=== PATIENT | male | born 1935 | race Hispanic/Latino ===

== ENCOUNTER 2017-12-20 16:11 | Emergency (ER) | payer MEDICARE, BC ==
[2017-12-20 16:11] VITALS: BMI 27.3
--- NOTE | 2017-12-20 18:01 | ED PDOC ---
Arrival/HPI - General Chief Complaint: Lower Extremity Problem/Injury Time Seen by Provider: 12/20/17 16:30 Historian: Patient - History of Present Illness Narrative History of Present Illness (Text): 12/20/17 17:52 82yo male with pmhx of hypertension present to ED with the by the bedside with the complaint of left lower leg pain and swelling x 5days. States he was seen today by his PMD for routine office visit and when he told him about his leg, he referred him to the ED for US. Reports history of similar symptom on his right leg in the past, that resolved without medication. Patient denied fever, chills, chest pain, SOB, diaphoresis, nausea, vomiting, any other complaint. Past Medical History - Provider Review Nursing Documentation Reviewed: Yes - Infectious Disease Hx of Infectious Diseases: None - Cardiac Hx Cardiac Disorders: Yes Hx Hypertension: Yes - Pulmonary Hx Respiratory Disorders: No - Neurological Hx Neurological Disorder: No - HEENT Hx HEENT Disorder: No - Renal Hx Renal Disorder: No - Endocrine/Metabolic Hx Endocrine Disorders: No - Hematological/Oncological Hx Blood Disorders: No - Integumentary Hx Dermatological Disorder: No - Musculoskeletal/Rheumatological Hx Musculoskeletal Disorders: No - Gastrointestinal Hx Gastrointestinal Disorders: No - Genitourinary/Gynecological Hx Genitourinary Disorders: No - Psychiatric Hx Psychophysiologic Disorder: No Hx Substance Use: No - Surgical History Hx Open Heart Surgery: Yes Other/Comment: hernia repair Family/Social History - Physician Review Nursing Documentation Reviewed: Yes Family/Social History: Unknown Family HX Smoking Status: Former Smoker Hx Alcohol Use: No Hx Substance Use: No Allergies/Home Meds Allergies/Adverse Reactions: Allergies No Known Allergies Allergy (Verified 12/20/17 16:32) Home Medications: Home Meds Medication Instructions Recorded Confirmed Doxazosin [Cardura] 2 mg PO HS 12/26/14 11/25/16 Furosemide [Lasix] 40 mg PO DAILY 12/26/14 11/25/16 Latanoprost 0.005% Opht [Xalatan 1 drop BOTHEYES DAILY 12/26/14 11/25/16 Opht] Amlodipine Besylate [Norvasc] 10 mg PO DAILY 09/23/15 11/25/16 Aspirin [Ecotrin] 81 mg PO DAILY 09/23/15 11/25/16 Ezetimibe/Simvastatin [Vytorin 1 tab PO DAILY 09/23/15 11/25/16 10-20 mg Tablet] Finasteride 5 mg PO DAILY 09/23/15 11/25/16 Irbesartan 300 mg PO DAILY 09/23/15 11/25/16 Metoprolol Tartrate 25 mg PO DAILY 09/23/15 11/25/16 Potassium Chloride 10 meq PO DAILY 09/23/15 11/25/16 Review of Systems - Physician Review All systems were reviewed & negative as marked: Yes - Review of Systems Constitutional: Normal Eyes: Normal ENT: Normal Respiratory: Normal Cardiovascular: Normal Gastrointestinal: Normal Genitourinary Male: Normal Musculoskeletal: Arthralgias (Left lower leg) Skin: Normal Neurological: Normal Endocrine: Normal Hemo/Lymphatic: Normal Psychiatric: Normal Physical Exam Vital Signs Reviewed: Yes Vital Signs Temp Pulse Resp BP Pulse Ox 12/20/17 16:28 98.1 F 76 19 119/79 98 Temperature: Afebrile Blood Pressure: Normal Pulse: Regular Respiratory Rate: Normal Appearance: Positive for: Well-Appearing, Non-Toxic, Comfortable Pain Distress: None Mental Status: Positive for: Alert and Oriented X 3 - Systems Exam Head: Present: Atraumatic, Normocephalic Pupils: Present: PERRL Extroacular Muscles: Present: EOMI Conjunctiva: Present: Normal Mouth: Present: Moist Mucous Membranes Neck: Present: Normal Range of Motion Respiratory/Chest: Present: Clear to Auscultation, Good Air Exchange. No: Respiratory Distress, Accessory Muscle Use Cardiovascular: Present: Regular Rate and Rhythm, Normal S1, S2. No: Murmurs Abdomen: No: Tenderness, Distention, Peritoneal Signs Back: Present: Normal Inspection Upper Extremity: Present: Normal Inspection. No: Cyanosis, Edema Lower Extremity: Present: Edema (3+ LLE), NORMAL PULSES, Normal ROM. No: CALF TENDERNESS, Tenderness, Temperature Abnormalties Neurological: Present: GCS=15, CN II-XII Intact, Speech Normal Skin: Present: Warm, Dry, Normal Color. No: Rashes Psychiatric: Present: Alert, Oriented x 3, Normal Insight, Normal Concentration Medical Decision Making ED Course and Treatment: 12/20/17 18:26 82yo male who was referred to ED for left lower leg doppler. Pt have no cm sign and no calf tenderness. Left lower leg edema was noted. Doppler US - Preliminary result was negative. Per US tech patient have a popliteal cyst on the left and a cooley's cyst on the right. US result was DW Dr. Victor who referred pt and he request that pt be DC home and advised to fill the Augmentin rx he gave him and reduce his Amlodopine intake to 5mg daily. All result and plan was DW both pt, the and the son over the phone and they all expressed understanding - RAD Interpretation Radiology Orders: 12/20/17 16:31 DUPLEX LOWER EXTRM VEIN BILAT [US] Stat Disposition/Present on Arrival - Present on Arrival Any Indicators Present on Arrival: No History of DVT/PE: No History of Uncontrolled Diabetes: No Urinary Catheter: No History of Decub. Ulcer: No History Surgical Site Infection Following: None - Disposition Have Diagnosis and Disposition been Completed?: Yes Diagnosis: Leg edema Disposition: HOME/ ROUTINE Disposition Time: 18:20 Patient Plan: Discharge Patient Problems: Current Active Problems Problem Status Onset Leg edema Acute Condition: STABLE Discharge Instructions (ExitCare): Dependent Edema (DC) Additional Instructions: Reduce your Amlodipine dose to 5mg Take your antibiotics as directed Keep leg elevated Follow up with your Doctor Return to ED for any new or worsening symptoms Referrals: Wilmer Victor MD [Family Provider] - Follow up with primary Forms: [facility] (Frisian)
--- NOTE | 2017-12-20 18:52 | US ---
HISTORY: Leg pain and swelling. Evaluate for DVT PHYSICIAN(S): Andrey Kerr MD. TECHNIQUE: Duplex sonography and color-flow Doppler with graded compression were used to evaluate the deep venous systems of both lower extremities. FINDINGS: The visualized deep venous systems of both lower extremities are sonographically normal and compressible. Normal wave forms and augmentation are seen. There is no sonographic evidence for deep venous thrombosis in the visualized segments of both lower extremities. There is a 3.2 x 3.8 cm oblong fluid collection in the right popliteal fossa, consistent with a Delacruz cyst IMPRESSION: No sonographic evidence for deep venous thrombosis in the visualized segments of both lower extremities.
[2017-12-20 19:12] VITALS: BP 124/72; PULSE 62; RESP 18; TEMP 98.6; O2SAT 99
== END 2017-12-20 18:30 | disposition home or self-care (01) ==
LOC: ED 16:11
DX: R60.0 Localized edema (principal); I10 Essential (primary) hypertension; Z87.891 Personal history of nicotine dependence

== ENCOUNTER 2018-04-15 15:46 | Observation (INO) | payer MEDICARE, BC ==
[2018-04-15 16:02] VITALS: BMI 28.3
--- NOTE | 2018-04-15 16:34 | ED PDOC ---
Arrival/HPI - General Chief Complaint: Lower Extremity Problem/Injury Time Seen by Provider: 04/15/18 16:10 Historian: Patient, Spouse, Family (son) - History of Present Illness Narrative History of Present Illness (Text): 04/15/18 16:30 82 y/o male with PMH of CAD (s/p CABG 2012), AAA, CHF presents to the ED c/o bilateral leg pain and swelling x 1 day. Associated intermittent SOB. Patient states pain is greatest in the left knee. Pt saw his PMD Dr. Victor this afternoon, who recommended that patient come to ED for evaluation. Pt was seen here for similar symptoms 12/2017 and was discharged home after a negative venous duplex and was ultimately treated for gout with some relief. Pt reportedly has a cysts behind both knees. Has not taken any medication for pain. Pt states he receives yearly echocardiograms and stress tests. Pt stays active by using the treadmill daily but was unable to yesterday secondary to pain. D enies fevers, chills, abdominal pain, back pain, chest pain, palpitations, N/V/D, weakness, numbness, paresthesias, or any other associated symptoms. PMD: Dr. Victor Senior [employer]: Dr. Arora Past Medical History - Provider Review Nursing Documentation Reviewed: Yes - Infectious Disease Hx of Infectious Diseases: None - Cardiac Hx Cardiac Disorders: Yes Hx Hypertension: Yes - Pulmonary Hx Respiratory Disorders: No - Neurological Hx Neurological Disorder: No - HEENT Hx HEENT Disorder: No - Renal Hx Renal Disorder: No - Endocrine/Metabolic Hx Endocrine Disorders: No - Hematological/Oncological Hx Blood Disorders: No - Integumentary Hx Dermatological Disorder: No - Musculoskeletal/Rheumatological Hx Musculoskeletal Disorders: No - Gastrointestinal Hx Gastrointestinal Disorders: No - Genitourinary/Gynecological Hx Genitourinary Disorders: No - Psychiatric Hx Psychophysiologic Disorder: No Hx Substance Use: No - Surgical History Hx Open Heart Surgery: Yes Other/Comment: hernia repair - Anesthesia Hx Anesthesia Reactions: No Hx Malignant Hyperthermia: No Family/Social History - Physician Review Nursing Documentation Reviewed: Yes Family/Social History: No Known Family HX Smoking Status: Former Smoker Hx Alcohol Use: No Hx Substance Use: No Allergies/Home Meds Allergies/Adverse Reactions: Allergies No Known Allergies Allergy (Verified 12/20/17 16:32) Home Medications: Home Meds Medication Instructions Recorded Confirmed Doxazosin [Cardura] 2 mg PO HS 12/26/14 04/16/18 Furosemide [Lasix] 40 mg PO DAILY 12/26/14 04/16/18 Latanoprost 0.005% Opht [Xalatan 1 drop OU DAILY 12/26/14 04/16/18 Opht] Amlodipine Besylate [Norvasc] 10 mg PO DAILY 09/23/15 04/16/18 Aspirin [Ecotrin] 81 mg PO DAILY 09/23/15 04/16/18 Ezetimibe/Simvastatin [Vytorin 1 tab PO DAILY 09/23/15 04/16/18 10-20 mg Tablet] Finasteride 5 mg PO DAILY 09/23/15 04/16/18 Irbesartan 300 mg PO DAILY 09/23/15 04/16/18 Metoprolol Tartrate 25 mg PO BID 09/23/15 04/16/18 Potassium Chloride 10 meq PO DAILY 09/23/15 04/16/18 Cholecalciferol [Vitamin D 1000 IU] 1 tab PO DAILY 04/16/18 04/16/18 Ticagrelor [Brilinta] 90 mg PO BID 04/16/18 04/16/18 Review of Systems - Physician Review All systems were reviewed & negative as marked: Yes - Review of Systems Constitutional: Fatigue Eyes: Normal. absent: Vision Changes ENT: Normal. absent: Hearing Changes, Sinus Congestion Respiratory: Normal. absent: SOB, Cough Cardiovascular: Normal. absent: Chest Pain, Palpitations, Syncope Gastrointestinal: Normal. absent: Abdominal Pain, Stool Changes, Nausea, Vo miting, Appetite Changes Genitourinary Male: Normal. absent: Dysuria, Frequency Musculoskeletal: Arthralgias (bilateral leg pain), Joint Swelling (left knee). absent: Back Pain Skin: Normal. absent: Rash Neurological: Normal. absent: Headache, Dizziness Endocrine: Normal Hemo/Lymphatic: Normal Psychiatric: Normal Physical Exam Vital Signs Reviewed: Yes Vital Signs Temp Pulse Resp BP Pulse Ox 04/15/18 15:47 99.1 F 95 H 20 138/75 97 Temperature: Afebrile Blood Pressure: Normal Pulse: Regular Respiratory Rate: Normal Appearance: Positive for: Well-Appearing, Non-Toxic, Comfortable Pain Distress: None Mental Status: Positive for: Alert and Oriented X 3 - Systems Exam Head: Present: Atraumatic, Normocephalic Pupils: Present: PERRL Extroacular Muscles: Present: EOMI Conjunctiva: Present: Normal Mouth: Present: Moist Mucous Membranes Neck: Present: Normal Range of Motion Respiratory/Chest: Present: Good Air Exchange, Decreased Breath Sounds (bilaterally), Rales (bilateral bases). No: Respiratory Distress, Accessory Muscle Use, Wheezes, Rhonchi Cardiovascular: Present: Regular Rate and Rhythm, Normal S1, S2, Peripheal Pulses Present (2/2 pedal pulses) Abdomen: Present: Normal Bowel Sounds. No: Tenderness, Distention, Peritoneal Signs, Rebound, Guarding Back: Present: Normal Inspection. No: CVA Tenderness, Midline Tenderness, Paraspinal Tenderness Upper Extremity: Present: Normal Inspection, Normal ROM, NORMAL PULSES, Neurovascularly Intact, Capillary Refill < 2s. No: Cyanosis, Edema, Swelling, Temperature Abnormalties Lower Extremity: Present: Normal Inspection, NORMAL PULSES, Normal ROM, Tenderness (left anterior knee lateral to patella), Swelling (bilateral pitting edema to feet; left knee anterior swelling without redness or wamrth), Neurovascularly Intact, Capillary Refill < 2 s. No: Edema, CALF TENDERNESS, Cyanosis, Ralph's Sign, Erythema, Deformity, Temperature Abnormalties Neurological: Present: GCS=15, CN II-XII Intact, Speech Normal, Motor Func Grossly Intact, Normal Sensory Function, Gait Normal Skin: Present: Warm, Dry, Normal Color. No: Rashes, Hot Psychiatric: Present: Alert, Oriented x 3, Normal Insight, Normal Concentration, Normal Affect, Normal Mood Medical Decision Making ED Course and Treatment: Initial Plan: * CBC, CMP * Troponin * BNP * UA * EKG * CXR * Lasix Labwork reviewed, reveals elevated BNP and mild anemia; otherwise unremarkable Venous duplex prelim read at negative for DVT bilaterally CXR reveals pulmonary congestion EKG reveals NSR with PVC, RBBB, Left anterior fascicular block; no comparison; troponin negative Patient reports decreased pain with tylenol Decision to admit for observation discussed with patient and family, who verbalize understanding and were given the opportunity to ask questions. 19:[address] Holley who accepted patient for telemetry observation with diagnosis of CHF exacerbation. Pt resting comfortably in stretcher with vital signs stable at this time. campus president notified. - Lab Interpretations Lab Results: 04/15/18 16:58 04/15/18 16:58 Lab Results 04/15/18 16:58: PT 12.9 H, INR 1.16, APTT 32.8 04/15/18 16:58: Sodium 135, Potassium 4.6, Chloride 100, Carbon Dioxide 26, Anion Gap 14, BUN 27 H, Creatinine 1.1, Est GFR ( Amer) > 60, Est GFR (Non-Af Amer) > 60, Random Glucose 124 H, Calcium 8.9, Total Bilirubin 0.7, AST 22, ALT < 6 L, Alkaline Phosphatase 69, Troponin I < 0.01, NT-Pro-B Natriuret Pep 944 H, Total Protein 7.8, Albumin 4.1, Globulin 3.7, Albumin/Globulin Ratio 1.1 04/15/18 16:58: Urine Color Yellow, Urine Appearance Clear, Urine pH 6.0, Ur Specific Clifford 1.015, Urine Protein Trace H, Urine Glucose (UA) Negative, Urine Ketones Negative, Urine Blood Negative, Urine Nitrate Negative, Urine Bilirubin Negative, Urine Urobilinogen 0.2, Ur Leukocyte Esterase Trace H, Urine RBC 0 - 2, Urine WBC 1 - 3, Ur Epithelial Cells 0 - 2 04/15/18 16:58: WBC 10.2, RBC 3.98, Hgb 11.2 L, Hct 34.2 L, MCV 85.9, MCH 28.1, MCHC 32.7, RDW 13.4, Plt Count 179, MPV 11.5 H, Neut % (Auto) 79.0 H, Lymph % (Auto) 11.9 L, Hendricks % (Auto) 8.5 H, Eos % (Auto) 0.4 L, Baso % (Auto) 0.2, Lymph # (Auto) 1.2, Hendricks # (Auto) 0.9 H, Eos # (Auto) 0.0, Baso # (Auto) 0.02, Absolute Neuts (auto) 8.04 H I have reviewed the lab results: Yes - RAD Interpretation Narrative RAD Interpretations (Text): CXR: Dictator : Marquis Ewing MD Report Date : 04/15/2018 18:25:16 FINDINGS: FINDINGS: LUNGS: Poor inspiration with low lung volumes, crowded bronchovascular markings and mild bibasilar atelectasis. Central pulmonary vasculature is also slightly i ncreased possibly due to poor inspiration however the possibility of mild chronic compensated pulmonary venous congestion not excluded. PLEURA: Sternotomy wires again noted. Heart is enlarged. No significant pleural effusion identified, no pneumothorax apparent. CARDIOVASCULAR: Sternotomy wires again noted heart is enlarged. Mild aortic atherosclerotic calcification present. OSSEOUS STRUCTURES: Deformity of the distal right clavicle possibly representing old healed fracture deformity. VISUALIZED UPPER ABDOMEN: Normal. OTHER FINDINGS: None. IMPRESSION: Poor inspiration with low lung volumes, crowded bronchovascular markings and mild bibasilar atelectasis. Central pulmonary vasculature is also slightly increased possibly due to poor inspiration however the possibility of mild chronic compensated pulmonary venous congestion not excluded. Knee Bilateral: Dictator : Marquis Ewing MD Report Date : 04/15/2018 18:20:04 FINDINGS: BONES: No evidence of acute displaced fracture nor dislocation. The osseous structures intact. Not much JOINTS: Right Knee: Mild moderate degenerative osteoarthritis. There is mild medial joint space narrowing. Spurring of the tibial spines. Marginal osteophyte formation seen arising from the lateral tibial plateau and lateral femoral condyle. Posterior patellar osteophytes are present.. Left knee: Mild degenerative osteoarthritis. There is minor medial joint space narrowing. Minimal spurring of the tibial spines. Small marginal osteophyte formation arising from the lateral tibial plateau and lateral femoral condyle. Tiny posterior patella osteophyte formation. SOFT TISSUES: Right Knee: Vascular calcifications are present Left Knee: Vascular calcifications are present. Additionally, there are multiple small vascular clips seen within the medial soft tissues of the distal thigh and proximal calf consistent with prior saphenous vein harvest however clinical correlation recommended. L. JOINT EFFUSION: Right Knee: Small suprapatellar joint effusion.. Left Knee: [id number] suprapatellar joint effusion. OTHER FINDINGS: None. IMPRESSION: No acute fractures. 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 Moderate-large size suprapatellar joint effusion 04/16/18 03:59 Radiology Orders: 04/15/18 16:20 CHEST PORTABLE [RAD] Stat DUPLEX LOWER EXTRM VEIN BILAT [US] Stat 04/15/18 16:22 KNEES BILATERAL [RAD] Stat Crowning Hammer Operator: Radiologist - EKG Interpretation EKG Interpretation (Text): Rate 96, NSR with PVC, RBBB, Left Anterior Fascicular Block, No STEMI, nonspecific ST/T wave changes Interpreted by ED Physician: Yes (Dr. Alvarez) Type: 12 lead EKG Comparison: No previous EKG avail. Disposition/Present on Arrival - Present on Arrival Any Indicators Present on Arrival: No History of DVT/PE: No History of Uncontrolled Diabetes: No Urinary Catheter: No History of Decub. Ulcer: No History Surgical Site Infection Following: None - Disposition Have Diagnosis and Disposition been Completed?: Yes Diagnosis: CHF exacerbation Disposition: HOSPITALIZED Disposition Time: 19:20 Patient Plan: Admission Condition: GOOD
[2018-04-15 17:05] LABS: BASO # 0.02 K/mm3 (0.0-2.0); BASO % 0.2 % (0.0-3.0); EOS % 0.4 % (1.5-5.0); HEMOGLOBIN 11.2 g/dL (14.0-18.0); LYMPH # 1.2 (1.2-3.4); LYMPH % 11.9 % (22.0-35.0); MEAN CELL VOLUME 85.9 fl (80.0-105.0); MEAN CORPUSCULAR HEMOGLOBIN 28.1 pg (25.0-35.0); MEAN CORPUSCULAR HGB CONC 32.7 g/dl (31.0-37.0); MEAN PLATELET VOLUME 11.5 fl (7.0-11.0); MONO # 0.9 (0.1-0.6); MONO % 8.5 % (1.0-6.0); RBC 3.98 10^6/uL (3.5-6.1); RED CELL DISTRIBUTION WIDTH 13.4 % (11.5-14.5); URINE BILIRUBIN NEGATIVE (NEGATIVE); URINE BLOOD NEGATIVE (NEGATIVE); URINE GLUCOSE (UA) NEGATIVE (NEGATIVE); URINE LEUKOCYTE ESTERASE TRACE Leu/uL (NEGATIVE); URINE PROTEIN TRACE mg/dL (<30 mg/dL); URINE UROBILINOGEN 0.2 E.U./dL (<1 E.U./dL); WHITE BLOOD COUNT 10.2 10^3/uL (4.5-11.0)
[2018-04-15 17:06] LABS: URINE APPEARANCE CLEAR (CLEAR); URINE COLOR YELLOW (YELLOW)
[2018-04-15 17:16] LABS: INR 1.16; PARTIAL THROMBOPLASTIN TIME 32.8 Seconds (26.9-38.3); PROTHROMBIN TIME 12.9 SECONDS (9.4-12.5)
[2018-04-15 17:24] LABS: ALB/GLOB RATIO 1.1 (1.1-1.8); ALBUMIN 4.1 g/dL (3.0-4.8); ALT/SGPT < 6 U/L (7-56); AST/SGOT 22 U/L (17-59); BLOOD UREA NITROGEN 27 mg/dL (7-21); CALCIUM 8.9 mg/dL (8.4-10.5); GFR NON-AFRICAN AMERICAN > 60
[2018-04-15 17:29] LABS: B-TYPE NATRIURETIC PEPTIDE 944 pg/mL (0-450); TROPONIN I < 0.01 ng/mL; URINE RBC 0 - 2 /hpf (0-2)
[2018-04-15 17:30] LABS: URINE EPITHELIAL CELLS 0 - 2 /hpf (0-5)
--- NOTE | 2018-04-15 18:23 | RAD ---
Date of service: 04/15/2018 PROCEDURE: Bilateral Knee Radiographs. HISTORY: Knee pain swelling L>R COMPARISON: None. FINDINGS: BONES: No evidence of acute displaced fracture nor dislocation. The osseous structures intact. Not much JOINTS: Right Knee: Mild moderate degenerative osteoarthritis. There is mild medial joint space narrowing. Spurring of the tibial spines. Marginal osteophyte formation seen arising from the lateral tibial plateau and lateral femoral condyle. Posterior patellar osteophytes are present.. Left knee: Mild degenerative osteoarthritis. There is minor medial joint space narrowing. Minimal spurring of the tibial spines. Small marginal osteophyte formation arising from the lateral tibial plateau and lateral femoral condyle. Tiny posterior patella osteophyte formation. SOFT TISSUES: Right Knee: Vascular calcifications are present Left Knee: Vascular calcifications are present. Additionally, there are multiple small vascular clips seen within the medial soft tissues of the distal thigh and proximal calf consistent with prior saphenous vein harvest however clinical correlation recommended. L. JOINT EFFUSION: Right Knee: Small suprapatellar joint effusion.. Left Knee: [id number]-[id number]-ipbvy suprapatellar joint effusion. OTHER FINDINGS: None. IMPRESSION: No acute fractures. 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 Moderate-large size suprapatellar joint effusion
--- NOTE | 2018-04-15 18:28 | RAD ---
Date of service: 04/15/2018 HISTORY: SOB COMPARISON: No prior study available for comparison FINDINGS: LUNGS: Poor inspiration with low lung volumes, crowded bronchovascular markings and mild bibasilar atelectasis. Central pulmonary vasculature is also slightly increased possibly due to poor inspiration however the possibility of mild chronic compensated pulmonary venous congestion not excluded. PLEURA: Sternotomy wires again noted. Heart is enlarged. No significant pleural effusion identified, no pneumothorax apparent. CARDIOVASCULAR: Sternotomy wires again noted heart is enlarged. Mild aortic atherosclerotic calcification present. OSSEOUS STRUCTURES: Deformity of the distal right clavicle possibly representing old healed fracture deformity. VISUALIZED UPPER ABDOMEN: Normal. OTHER FINDINGS: None. IMPRESSION: Poor inspiration with low lung volumes, crowded bronchovascular markings and mild bibasilar atelectasis. Central pulmonary vasculature is also slightly increased possibly due to poor inspiration however the possibility of mild chronic compensated pulmonary venous congestion not excluded.
--- NOTE | 2018-04-15 20:25 | CP.PCM.HP ---
<DarianFranciscoNewton - Last Filed: 04/15/18 20:22> History of Present Illness - History of Present Illness History of Present Illness: Aman Farmer, PGY-1 Medicine H&P Note for Dr. Holley: CC: b/l LE swelling worse on L than R Pt is a 82 yo M with pmhx of 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 Pt states that he had also been having L sided knee pain which he noticed worsen yesterday. The pt is typically active and walks on a treadmill for 20mins 3x/day every day of the week. He states that he just woke up and noticed the swelling and then knee pain as well. He denies fevers, chills, headaches, chest pain, palpitations, SOB, dyspnea on exertion, orthopnea, abd pain, n/v, c/d, dysuria or hematuria. He does admit to b/l LE swelling and states that his L knee is also swollen. He states that he has been compliant with his medications but has been eating a diet that is a little higher in salt. Pmhx: CAD s/p CABG '13, HTN, HLD, BPH, CHF Pshx: CABG Meds: Lopressor 25qd, Irbesartan 300mgqd, finasteride 5qd, cardura 2 HS, ASA 81qd, norvasc 10 po qd, Lasix 40po qd All: NKDA Soc: Denies tobacco use, denies recent etoh or illicit drug use Fam: Non-contributory PMD: Dedousis Cardio: Ulysses Pharm: Lilian Present on Admission - Present on Admission Any Indicators Present on Admission: No Review of Systems - Review of Systems Review of Systems: 12 point ROS reviewed and negative except noted in HPI above. Past Patient History - Infectious Disease Hx of Infectious Diseases: None - Past Social History Smoking Status: Former Smoker - CARDIAC Hx Cardiac Disorders: Yes Hx Hypertension: Yes - PULMONARY Hx Respiratory Disorders: No - NEUROLOGICAL Hx Neurological Disorder: No - HEENT Hx HEENT Problems: No - RENAL Hx Chronic Kidney Disease: No - ENDOCRINE/METABOLIC Hx Endocrine Disorders: No - HEMATOLOGICAL/ONCOLOGICAL Hx Blood Disorders: No - INTEGUMENTARY Hx Dermatological Problems: No - MUSCULOSKELETAL/RHEUMATOLOGICAL Hx Musculoskeletal Disorders: No - GASTROINTESTINAL Hx Gastrointestinal Disorders: No - GENITOURINARY/GYNECOLOGICAL Hx Genitourinary Disorders: No - PSYCHIATRIC Hx Psychophysiologic Disorder: No Hx Substance Use: No - SURGICAL HISTORY Hx Open Heart Surgery: Yes Other/Comment: hernia repair - ANESTHESIA Hx Anesthesia Reactions: No Hx Malignant Hyperthermia: No Meds Allergies/Adverse Reactions: Allergies Allergy/AdvReac Type Severity Reaction Status Date / Time No Known Allergies Allergy Verified 12/20/17 16:32 Physical Exam - Constitutional Appears: Non-toxic, No Acute Distress - Head Exam Head Exam: ATRAUMATIC, NORMAL INSPECTION, NORMOCEPHALIC - Eye Exam Eye Exam: EOMI, Normal appearance, PERRL - Respiratory Exam Respiratory Exam: Rales (noted in b/l lower lobes b/l), NORMAL BREATHING PATTERN. absent: Accessory Muscle Use, Rhonchi, Wheezes, Respiratory Distress, Stridor - Cardiovascular Exam Cardiovascular Exam: RRR, +S1, +S2. absent: Gallop, Rubs - GI/Abdominal Exam GI & Abdominal Exam: Normal Bowel Sounds, Soft. absent: Firm, Guarding, Hernia, Tenderness - Extremities Exam Extremities exam: Positive for: pedal edema (present on both extremities b/l, worse on L than R), tenderness (present at the L knee, L knee is swollen, but not warm or erythematous, ). Negative for: calf tenderness - Back Exam Back exam: NORMAL INSPECTION. absent: CVA tenderness (L), CVA tenderness (R) - Neurological Exam Neurological exam: Alert, Oriented x3 - Psychiatric Exam Psychiatric exam: Normal Affect, Normal Mood - Skin Skin Exam: Dry, Normal Color, Warm Results - Vital Signs Recent Vital Signs: Last Vital Signs Temp 99.1 F 04/15/18 15:47 Pulse 73 04/15/18 19:43 Resp 18 04/15/18 19:43 BP 109/43 L 04/15/18 19:43 Pulse Ox 100 04/15/18 19:43 - Labs Result Diagrams: 04/15/18 16:58 04/15/18 16:58 Labs: Laboratory Results - last 24 hr 04/15/18 04/15/18 04/15/18 16:58 16:58 16:58 WBC 10.2 RBC 3.98 Hgb 11.2 L Hct 34.2 L MCV 85.9 MCH 28.1 MCHC 32.7 RDW 13.4 Plt Count 179 MPV 11.5 H Neut % (Auto) 79.0 H Lymph % (Auto) 11.9 L [place] % (Auto) 8.5 H Eos % (Auto) 0.4 L Baso % (Auto) 0.2 Lymph # (Auto) 1.2 [place] # (Auto) 0.9 H Eos # (Auto) 0.0 Baso # (Auto) 0.02 Absolute Neuts (auto) 8.04 H PT INR APTT Sodium 135 Potassium 4.6 Chloride 100 Carbon Dioxide 26 Anion Gap 14 BUN 27 H Creatinine 1.1 Est GFR ( Amer) > 60 Est GFR (Non-Af Amer) > 60 Random Glucose 124 H Calcium 8.9 Total Bilirubin 0.7 AST 22 ALT < 6 L Alkaline Phosphatase 69 Troponin I < 0.01 NT-Pro-B Natriuret Pep 944 H Total Protein 7.8 Albumin 4.1 Globulin 3.7 Albumin/Globulin Ratio 1.1 Urine Color Yellow Urine Appearance Clear Urine pH 6.0 Ur Specific [place] 1.015 Urine Protein Trace H Urine Glucose (UA) Negative Urine Ketones Negative Urine Blood Negative Urine Nitrate Negative Urine Bilirubin Negative Urine Urobilinogen 0.2 Ur Leukocyte Esterase Trace H Urine RBC 0 - 2 Urine WBC 1 - 3 Ur Epithelial Cells 0 - 2 Influenza Typ A,B (EIA) 04/15/18 04/15/18 16:58 19:25 WBC RBC Hgb Hct MCV MCH MCHC RDW Plt Count MPV Neut % (Auto) Lymph % (Auto) [place] % (Auto) Eos % (Auto) Baso % (Auto) Lymph # (Auto) [place] # (Auto) Eos # (Auto) Baso # (Auto) Absolute Neuts (auto) PT 12.9 H INR 1.16 APTT 32.8 Sodium Potassium Chloride Carbon Dioxide Anion Gap BUN Creatinine Est GFR ( Amer) Est GFR (Non-Af Amer) Random Glucose Calcium Total Bilirubin AST ALT Alkaline Phosphatase Troponin I NT-Pro-B Natriuret Pep Total Protein Albumin Globulin Albumin/Globulin Ratio Urine Color Urine Appearance Urine pH Ur Specific [place] Urine Protein Urine Glucose (UA) Urine Ketones Urine Blood Urine Nitrate Urine Bilirubin Urine Urobilinogen Ur Leukocyte Esterase Urine RBC Urine WBC Ur Epithelial Cells Influenza Typ A,B (EIA) Negative for flu a/b Assessment & Plan - Assessment and Plan (Free Text) Assessment: Pt is a 82 yo M with pmhx of 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 Plan: 1) B/l LE swelling 2/2 CHF exacerbation but r/o DVT: - Pt does not have signs of JVD, but does have some edema noted in LE b/l as well as mild crackles at lung bases - BNP elevated in the 944 - CXR: pulm vasc congestion - read by me - f/u official LE doppler read - Lasix 40 IVP given in ED - Cont lasix 40 iv qd - Echo in AM - Cardio consulted - Dr. Arora - Strict I/Os - Daily weights - Low Na diet - HOB 30 2) L Knee pain: - L knee XR showed mild effusion f/u with official read - Naproxen 550 BID PRN 3) Hx of HTN - Cont home norvasc, lopressor and irbesartan 4) Hx of HLD: - Cont home Vytorin 5) Hx of BPH: - Cont home cardura, and proscar 6) Hx of CAD s/p CABG '13: - Cont home ASA, Lopressor PPx: GI: Pepcid DVT: Lovenox Case seen and discussed with Dr. Kishan Farmer, PGY-1 <Kesha Holley - Last Filed: 04/16/18 05:41> Results - Vital Signs Recent Vital Signs: Last Vital Signs Temp 99.9 F H 04/16/18 05:29 Pulse 98 H 04/16/18 05:29 Resp 18 04/16/18 05:29 BP 124/75 04/16/18 05:29 Pulse Ox 94 L 04/16/18 05:29 - Labs Result Diagrams: 04/15/18 16:58 04/15/18 16:58 Labs: Laboratory Results - last 24 hr 04/15/18 04/15/18 04/15/18 16:58 16:58 16:58 WBC 10.2 RBC 3.98 Hgb 11.2 L Hct 34.2 L MCV 85.9 MCH 28.1 MCHC 32.7 RDW 13.4 Plt Count 179 MPV 11.5 H Neut % (Auto) 79.0 H Lymph % (Auto) 11.9 L [place] % (Auto) 8.5 H Eos % (Auto) 0.4 L Baso % (Auto) 0.2 Lymph # (Auto) 1.2 [place] # (Auto) 0.9 H Eos # (Auto) 0.0 Baso # (Auto) 0.02 Absolute Neuts (auto) 8.04 H PT INR APTT Sodium 135 Potassium 4.6 Chloride 100 Carbon Dioxide 26 Anion Gap 14 BUN 27 H Creatinine 1.1 Est GFR ( Amer) > 60 Est GFR (Non-Af Amer) > 60 Random Glucose 124 H Calcium 8.9 Total Bilirubin 0.7 AST 22 ALT < 6 L Alkaline Phosphatase 69 Troponin I < 0.01 NT-Pro-B Natriuret Pep 944 H Total Protein 7.8 Albumin 4.1 Globulin 3.7 Albumin/Globulin Ratio 1.1 Urine Color Yellow Urine Appearance Clear Urine pH 6.0 Ur Specific [place] 1.015 Urine Protein Trace H Urine Glucose (UA) Negative Urine Ketones Negative Urine Blood Negative Urine Nitrate Negative Urine Bilirubin Negative Urine Urobilinogen 0.2 Ur Leukocyte Esterase Trace H Urine RBC 0 - 2 Urine WBC 1 - 3 Ur Epithelial Cells 0 - 2 Influenza Typ A,B (EIA) 04/15/18 04/15/18 04/16/18 16:58 19:25 02:50 WBC RBC Hgb Hct MCV MCH MCHC RDW Plt Count MPV Neut % (Auto) Lymph % (Auto) [place] % (Auto) Eos % (Auto) Baso % (Auto) Lymph # (Auto) [place] # (Auto) Eos # (Auto) Baso # (Auto) Absolute Neuts (auto) PT 12.9 H INR 1.16 APTT 32.8 Sodium Potassium Chloride Carbon Dioxide Anion Gap BUN Creatinine Est GFR ( Amer) Est GFR (Non-Af Amer) Random Glucose Calcium Total Bilirubin AST ALT Alkaline Phosphatase Troponin I < 0.01 NT-Pro-B Natriuret Pep Total Protein Albumin Globulin Albumin/Globulin Ratio Urine Color Urine Appearance Urine pH Ur Specific [place] Urine Protein Urine Glucose (UA) Urine Ketones Urine Blood Urine Nitrate Urine Bilirubin Urine Urobilinogen Ur Leukocyte Esterase Urine RBC Urine WBC Ur Epithelial Cells Influenza Typ A,B (EIA) Negative for flu a/b Attending/Attestation - Attestation I have personally seen and examined this patient.: Yes I have fully participated in the care of the patient.: Yes I have reviewed all pertinent clinical information: Yes
[2018-04-15] MEDS ORDERED: Naproxen 550 mg Tab PO PRN (20:53)
--- NOTE | 2018-04-15 22:54 | CARD ---
APPROVED REPORT Date of service: 04/15/2018 EKG Measurement Heart [id number] <Conclusion> Sinus rhythm with frequent premature ventricular complexes Right bundle branch block Left anterior fascicular block Bifascicular block Diffuse NDSTT abnormalities Abnormal ECG
--- NOTE | 2018-04-16 07:54 | CP.PCM.CON ---
History of Present Illness - History of Present Illness History of Present Illness: Awake, no distress, denies chest pain or shortness of breath Reason for consultation: Cardiac evaluation of shortness of breath and leg swelling Brief history of present illness: An 82 year old male who came in to the ER due to bilateral leg swelling and pain associated with shortness of breath. He was seen by his PMD prior to admission and recommended to come to [facility]. History of abdominal aortic aneurysm, coronary artery disease post CABG in 2013, lower extremity edema, popliteal cyst in the right knee and cooley;s cyst in the left knee.hypertension, hyperlipidemia,BPH, congestive heart failure, hernia repair, former smoker. Seen and examined by me and Dr. Arora Review of Systems - Review of Systems All systems: reviewed and no additional remarkable complaints except Review of Systems: as per HPI Past Patient History - Infectious Disease Hx of Infectious Diseases: None - Past Social History Smoking Status: Former Smoker - CARDIAC Hx Cardiac Disorders: Yes Hx Hypertension: Yes - PULMONARY Hx Respiratory Disorders: No - NEUROLOGICAL Hx Neurological Disorder: No - HEENT Hx HEENT Problems: No - RENAL Hx Chronic Kidney Disease: No - ENDOCRINE/METABOLIC Hx Endocrine Disorders: No - HEMATOLOGICAL/ONCOLOGICAL Hx Blood Disorders: No - INTEGUMENTARY Hx Dermatological Problems: No - MUSCULOSKELETAL/RHEUMATOLOGICAL Hx Musculoskeletal Disorders: No - GASTROINTESTINAL Hx Gastrointestinal Disorders: No - GENITOURINARY/GYNECOLOGICAL Hx Genitourinary Disorders: No - PSYCHIATRIC Hx Psychophysiologic Disorder: No Hx Substance Use: No - SURGICAL HISTORY Hx Open Heart Surgery: Yes Other/Comment: hernia repair - ANESTHESIA Hx Anesthesia Reactions: No Hx Malignant Hyperthermia: No Meds Allergies/Adverse Reactions: Allergies Allergy/AdvReac Type Severity Reaction Status Date / Time No Known Allergies Allergy Verified 12/20/17 16:32 - Medications Medications: Current Medications Amlodipine Besylate (Norvasc) 10 mg PO DAILY [facility] Aspirin (Ecotrin) 81 mg PO DAILY [facility] Atorvastatin Calcium (Lipitor) 10 mg PO DAILY [facility] Doxazosin Mesylate (Cardura) 2 mg PO HS [facility] Last Admin: 04/15/18 22:42 Dose: 2 mg Ezetimibe (Zetia) 10 mg PO DAILY [facility] Enoxaparin Sodium (Lovenox) 40 mg SC DAILY [facility]; Protocol Famotidine (Pepcid) 20 mg PO 1000,2200 [facility] Last Admin: 04/15/18 22:42 Dose: 20 mg Finasteride (Proscar) 5 mg PO DAILY [facility] Furosemide (Lasix) 40 mg IVP DAILY [facility] Latanoprost (Xalatan Opht) 0 ml OU DAILY [facility] Losartan Potassium (Cozaar) 100 mg PO DAILY [facility] Metoprolol Tartrate (Lopressor) 25 mg PO DAILY [facility] Naproxen (Anaprox Ds) 550 mg PO BID PRN PRN Reason: Pain, moderate (4-7) Physical Exam - Constitutional Appears: Non-toxic, No Acute Distress - Head Exam Head Exam: NORMAL INSPECTION, NORMOCEPHALIC - Eye Exam Eye Exam: Normal appearance Pupil Exam: NORMAL ACCOMODATION - ENT Exam ENT Exam: Mucous Membranes Moist - Respiratory Exam Respiratory Exam: Decreased Breath Sounds, NORMAL BREATHING PATTERN - Cardiovascular Exam Cardiovascular Exam: REGULAR RHYTHM, +S1, +S2 Additional comments: Telemetry NSR 80-90's - GI/Abdominal Exam GI & Abdominal Exam: Normal Bowel Sounds, Soft - Extremities Exam Extremities exam: Positive for: full ROM Additional comments: 1-2+ edema - Neurological Exam Neurological exam: Alert, Oriented x3 - Psychiatric Exam Psychiatric exam: Normal Affect, Normal Mood - Skin Skin Exam: Dry, Normal Color, Warm Results - Vital Signs Recent Vital Signs: Last Vital Signs Temp 99.0 F 04/16/18 07:00 Pulse 98 H 04/16/18 05:29 Resp 18 04/16/18 05:29 BP 124/75 04/16/18 05:29 Pulse Ox 94 L 04/16/18 05:29 - Labs Result Diagrams: 04/16/18 08:30 04/16/18 08:30 Labs: Laboratory Results - last 24 hr 04/15/18 04/15/18 04/15/18 16:58 16:58 16:58 WBC 10.2 RBC 3.98 Hgb 11.2 L Hct 34.2 L MCV 85.9 MCH 28.1 MCHC 32.7 RDW 13.4 Plt Count 179 MPV 11.5 H Neut % (Auto) 79.0 H Lymph % (Auto) 11.9 L [place] % (Auto) 8.5 H Eos % (Auto) 0.4 L Baso % (Auto) 0.2 Lymph # (Auto) 1.2 [place] # (Auto) 0.9 H Eos # (Auto) 0.0 Baso # (Auto) 0.02 Absolute Neuts (auto) 8.04 H PT INR APTT Sodium 135 Potassium 4.6 Chloride 100 Carbon Dioxide 26 Anion Gap 14 BUN 27 H Creatinine 1.1 Est GFR ( Amer) > 60 Est GFR (Non-Af Amer) > 60 Random Glucose 124 H Calcium 8.9 Total Bilirubin 0.7 AST 22 ALT < 6 L Alkaline Phosphatase 69 Troponin I < 0.01 NT-Pro-B Natriuret Pep 944 H Total Protein 7.8 Albumin 4.1 Globulin 3.7 Albumin/Globulin Ratio 1.1 Urine Color Yellow Urine Appearance Clear Urine pH 6.0 Ur Specific [place] 1.015 Urine Protein Trace H Urine Glucose (UA) Negative Urine Ketones Negative Urine Blood Negative Urine Nitrate Negative Urine Bilirubin Negative Urine Urobilinogen 0.2 Ur Leukocyte Esterase Trace H Urine RBC 0 - 2 Urine WBC 1 - 3 Ur Epithelial Cells 0 - 2 Influenza Typ A,B (EIA) 04/15/18 04/15/18 04/16/18 16:58 19:25 02:50 WBC RBC Hgb Hct MCV MCH MCHC RDW Plt Count MPV Neut % (Auto) Lymph % (Auto) [place] % (Auto) Eos % (Auto) Baso % (Auto) Lymph # (Auto) [place] # (Auto) Eos # (Auto) Baso # (Auto) Absolute Neuts (auto) PT 12.9 H INR 1.16 APTT 32.8 Sodium Potassium Chloride Carbon Dioxide Anion Gap BUN Creatinine Est GFR ( Amer) Est GFR (Non-Af Amer) Random Glucose Calcium Total Bilirubin AST ALT Alkaline Phosphatase Troponin I < 0.01 NT-Pro-B Natriuret Pep Total Protein Albumin Globulin Albumin/Globulin Ratio Urine Color Urine Appearance Urine pH Ur Specific [place] Urine Protein Urine Glucose (UA) Urine Ketones Urine Blood Urine Nitrate Urine Bilirubin Urine Urobilinogen Ur Leukocyte Esterase Urine RBC Urine WBC Ur Epithelial Cells Influenza Typ A,B (EIA) Negative for flu a/b Assessment & Plan - Assessment and Plan (Free Text) Assessment: An 82 year old male who came in to the ER due to bilateral leg swelling and pain associated with shortness of breath. He was seen by his PMD prior to admission and recommended to come to [facility]. History of abdominal aortic aneurysm, coronary artery disease post CABG in 2012, lower extremity edema, popliteal cyst in the right knee and cooley;s cyst in the left knee.hypertension, hyperlipidemia,BPH, congestive heart failure, hernia repair, former smoker. Chest X ray showed pulmonary vascular congestion, EKG showed NSR with PVC's, RBBB. Troponin normal x 2. BNP elevated. Will order echo.US of lower extremity pending results. CT of abdomen to evaluate abdominal aortic aneurysm progression. Previous cardiac workup at [facility]: 11/25/16- Stress test done- Abnormal myocardial perfusion, partially reversible small apical anterior defects suspicious of ischemia. Study compared to 09/2015 study showed larger anterior apical defects partially reversible. 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 Plan: No distress Denies shortness of breath Echo to evaluate LV function Heart rate controlled Blood pressure controlled On Norvasc 10 mg daily,ASA 81 mg daily, Lipitor 10 mg daily Cardura 2 mg daily,Lovenox 40 mg daily, Proscar 5 mg daily Lasix 40 mg daily, Cozaar 100 mg daily, Lopressor 25 mg daily Continue to diurese with Lasix Continue current treatment TSH,Lipid profile, TSH level CT of abdomen to evaluate abdominal aortic aneurysm progression. Further recommendation during hospital course Will follow up Plan and treatment discussed with Dr. Arora Thank you for the opportunity of taking care of Mr. Bernard - Date & Time Date: 04/16/18 Time: 06:30
[2018-04-16 08:53] LABS: BASO # 0.01 K/mm3 (0.0-2.0); BASO % 0.1 % (0.0-3.0); EOS % 0.5 % (1.5-5.0); HEMOGLOBIN 10.4 g/dL (14.0-18.0); LYMPH # 1.5 (1.2-3.4); LYMPH % 18.9 % (22.0-35.0); MEAN CELL VOLUME 86.2 fl (80.0-105.0); MEAN CORPUSCULAR HEMOGLOBIN 27.7 pg (25.0-35.0); MEAN CORPUSCULAR HGB CONC 32.1 g/dl (31.0-37.0); MONO # 0.4 (0.1-0.6); RBC 3.76 10^6/uL (3.5-6.1); RED CELL DISTRIBUTION WIDTH 13.5 % (11.5-14.5); WHITE BLOOD COUNT 7.9 10^3/uL (4.5-11.0)
[2018-04-16 09:05] LABS: ALBUMIN 3.5 g/dL (3.0-4.8); AST/SGOT 21 U/L (17-59); BLOOD UREA NITROGEN 22 mg/dL (7-21); CALCIUM 8.4 mg/dL (8.4-10.5); GFR NON-AFRICAN AMERICAN > 60
[2018-04-16 09:08] LABS: ALT/SGPT < 6 U/L (7-56)
[2018-04-16] MEDS: Enoxaparin 40 mg Syringe SC SCH ×2 (09:42→11:40)
[2018-04-16] MEDS ORDERED: Latanoprost 2.5 ml Opht Soln OU SCH ×2 (10:00→22:00)
--- NOTE | 2018-04-16 12:35 | CT ---
Date of service: 04/16/2018 PROCEDURE: CT Abdomen and Pelvis without intravenous contrast HISTORY: evaluate history of abdominal aortic aneurysm COMPARISON: None. TECHNIQUE: Without contrast. Contrast dose: Radiation dose: Total exam DLP = 525.41 mGy-cm. This CT exam was performed using one or more of the following dose reduction techniques: Automated exposure control, adjustment of the mA and/or kV according to patient size, and/or use of iterative reconstruction technique. FINDINGS: LOWER THORAX: Unremarkable. LIVER: Unremarkable. No gross lesion or ductal dilatation. GALLBLADDER AND BILE DUCTS: Several gallstones. Contracted gallbladder PANCREAS: Unremarkable. No gross lesion or ductal dilatation. SPLEEN: Unremarkable. ADRENALS: Unremarkable. No mass. KIDNEYS AND URETERS: Unremarkable. No hydronephrosis. No solid mass. VASCULATURE: The aorta is diffusely calcified. There is an infrarenal abdominal aortic aneurysm measuring 31 x 42 mm transversely BOWEL: Unremarkable. No obstruction. No gross mural thickening. APPENDIX: Unremarkable. Normal appendix. 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 This measures 12 cm in height by 9.2 cm wide by 14 cm AP. LYMPH NODES: Unremarkable. No enlarged lymph nodes. BLADDER: Unremarkable. REPRODUCTIVE: Prostate is mildly enlarged BONES: No acute fracture. OTHER FINDINGS: None. 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 This measures 12 cm in height by 9.2 cm wide by 14 cm AP. The aorta is diffusely calcified. There is an infrarenal abdominal aortic aneurysm measuring 31 x 42 mm transversely
[2018-04-16 15:32] LABS: URIC ACID 9.2 mg/dL (3.5-8.5)
--- NOTE | 2018-04-16 17:11 | CP.PCM.PN ---
<Aman Farmer - Last Filed: 04/16/18 17:07> Subjective - Date & Time of Evaluation Date of Evaluation: 04/16/18 Time of Evaluation: 17:08 - Subjective Subjective: Aman Farmer, PGY-1 Medicine Progress Note for Dr. Umanzor: Pt was seen and examined this AM at bedside. Pt states that he is still having the L sided knee pain. Pt continued to deny SOB, orthopnea, JONES. The pt is tolerating his diet well. Pt has no other complaints at this time and denies fevers, chills, headache, SOB, cough, chest pain, palpitations, abd pain, n/v, c/d, or dysuria. Pt only admits to the LE swelling worse on L than R. Objective - Vital Signs/Intake and Output Vital Signs (last 24 hours): Temp Pulse Resp BP Pulse Ox 98.8 F 77 16 105/60 94 L 04/16/18 12:00 04/16/18 14:00 04/16/18 12:00 04/16/18 12:00 04/16/18 05:29 Intake and Output: 04/16/18 04/16/18 06:59 18:59 Intake Total 240 240 Output Total 950 Balance -710 240 - Medications Medications: Current Medications Amlodipine Besylate (Norvasc) 10 mg PO DAILY [facility] Last Admin: 04/16/18 09:46 Dose: Not Given Aspirin (Ecotrin) 81 mg PO DAILY [facility] Last Admin: 04/16/18 09:43 Dose: 81 mg Atorvastatin Calcium (Lipitor) 10 mg PO DAILY [facility] Last Admin: 04/16/18 09:43 Dose: 10 mg Colchicine (Colocrys) 0.6 mg PO DAILY [facility] Doxazosin Mesylate (Cardura) 2 mg PO HS [facility] Last Admin: 04/15/18 22:42 Dose: 2 mg Ezetimibe (Zetia) 10 mg PO DAILY [facility] Last Admin: 04/16/18 09:43 Dose: 10 mg Enoxaparin Sodium (Lovenox) 40 mg SC DAILY [facility]; Protocol Last Admin: 04/16/18 11:40 Dose: Not Given Famotidine (Pepcid) 20 mg PO 1000,2200 [facility] Last Admin: 04/16/18 09:44 Dose: 20 mg Finasteride (Proscar) 5 mg PO DAILY [facility] Last Admin: 04/16/18 09:43 Dose: 5 mg Furosemide (Lasix) 40 mg PO DAILY [facility] Latanoprost (Xalatan Opht) 0 ml OU HS [facility] Losartan Potassium (Cozaar) 100 mg PO DAILY [facility] Last Admin: 04/16/18 09:44 Dose: Not Given Metoprolol Tartrate (Lopressor) 25 mg PO DAILY [facility] Last Admin: 04/16/18 09:43 Dose: Not Given Naproxen (Anaprox Ds) 550 mg PO BID [facility] - Labs Labs: 04/16/18 08:30 04/16/18 08:30 PT 12.9 SECONDS (9.4-12.5) H 04/15/18 16:58 INR 1.16 04/15/18 16:58 APTT 32.8 Seconds (26.9-38.3) 04/15/18 16:58 - Constitutional Appears: Non-toxic, No Acute Distress - Head Exam Head Exam: ATRAUMATIC, NORMAL INSPECTION, NORMOCEPHALIC - Eye Exam Eye Exam: EOMI, Normal appearance, PERRL - Respiratory Exam Respiratory Exam: Rales (noticed in the b/l lower lobes, mild), NORMAL BREATHING PATTERN. absent: Accessory Muscle Use, Rhonchi, Wheezes, Respiratory Distress, Stridor - Cardiovascular Exam Cardiovascular Exam: RRR, +S1, +S2. absent: Gallop, Rubs - GI/Abdominal Exam GI & Abdominal Exam: Soft, Normal Bowel Sounds. absent: Firm, Guarding, Rigid, Tenderness - Extremities Exam Extremities Exam: Joint Swelling (present at the L knee, L knee is swollen and warm but not erythematous.), Pedal Edema (noted in both extremeties b/l, worse on L than R) - Back Exam Back Exam: NORMAL INSPECTION. absent: CVA tenderness (L), CVA tenderness (R) - Neurological Exam Neurological Exam: Alert, Awake, Oriented x3 - Psychiatric Exam Psychiatric exam: Normal Affect, Normal Mood - Skin Skin Exam: Dry, Normal Color, Warm Assessment and Plan - Assessment and Plan (Free Text) Assessment: Pt is a 82 yo M with pmhx of 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 Plan: 1) B/l LE swelling 2/2 CHF exacerbation but r/o DVT: - Pt does not have signs of JVD, but does have some edema noted in LE b/l as well as mild crackles at lung bases - BNP elevated in the 944 - CXR: Poor inspiratory lung volumes, mild bibasilar atelecatasis. Pulm vasc congestion could not be excluded - f/u official LE doppler read - Pre-henao read is negative for DVT - Lasix 40 IVP given in ED - Cont lasix 40 iv qd - Echo in AM - Cardio consulted - Dr. Arora -f/u official read - Strict I/Os - Daily weights - Low Na diet - HOB 30 2) L Knee pain: - L knee XR showed: mod-large size suprapatellar joint effusion - Naproxen 550 BID PRN - Colchicine 1.2mg once, then .6mg po qd for suspected gout flare - Ortho consulted for effusion aspiration 3) Hx of HTN - Cont home norvasc, lopressor and irbesartan with holding parameters 4) Hx of HLD: - Cont home Vytorin 5) Hx of BPH: - Cont home cardura, and proscar 6) Hx of CAD s/p CABG '13: - Cont home ASA, Lopressor - Cont Brilinta 60 BID PPx: GI: Pepcid DVT: Lovenox Case seen and discussed with Dr. Noé Farmer, PGY-1 <Philipp Umanzor - Last Filed: 04/17/18 15:43> Objective - Vital Signs/Intake and Output Vital Signs (last 24 hours): Temp Pulse Resp BP Pulse Ox 98.4 F 92 H 19 133/57 L 94 L 04/17/18 12:00 04/17/18 12:00 04/17/18 12:00 04/17/18 12:00 04/17/18 06:00 Intake and Output: 04/17/18 04/17/18 06:59 18:59 Intake Total 120 Output Total 500 Balance -380 - Medications Medications: Current Medications Amlodipine Besylate (Norvasc) 10 mg PO DAILY [facility] Last Admin: 04/17/18 09:33 Dose: 10 mg Aspirin (Ecotrin) 81 mg PO DAILY [facility] Last Admin: 04/17/18 09:32 Dose: 81 mg Atorvastatin Calcium (Lipitor) 10 mg PO DAILY [facility] Last Admin: 04/17/18 09:32 Dose: 10 mg Colchicine (Colocrys) 0.6 mg PO DAILY [facility] Last Admin: 04/17/18 09:32 Dose: 0.6 mg Doxazosin Mesylate (Cardura) 2 mg PO HS [facility] Last Admin: 04/16/18 22:15 Dose: 2 mg Ezetimibe (Zetia) 10 mg PO DAILY [facility] Last Admin: 04/17/18 09:35 Dose: 10 mg Enoxaparin Sodium (Lovenox) 40 mg SC DAILY [facility]; Protocol Last Admin: 04/17/18 09:33 Dose: Not Given Famotidine (Pepcid) 20 mg PO 1000,2200 [facility] Last Admin: 04/17/18 09:32 Dose: 20 mg Finasteride (Proscar) 5 mg PO DAILY [facility] Last Admin: 04/17/18 09:32 Dose: 5 mg Furosemide (Lasix) 40 mg PO DAILY [facility] Last Admin: 04/17/18 09:33 Dose: 40 mg Latanoprost (Xalatan Opht) 0 ml OU HS [facility] Last Admin: 04/16/18 22:50 Dose: Not Given Losartan Potassium (Cozaar) 100 mg PO DAILY [facility] Last Admin: 04/17/18 09:33 Dose: 100 mg Metoprolol Tartrate (Lopressor) 25 mg PO DAILY [facility] Last Admin: 04/17/18 09:32 Dose: 25 mg Naproxen (Anaprox Ds) 550 mg PO BID PRN PRN Reason: Pain, moderate (4-7) Ticagrelor (Brilinta) 60 mg PO Q12 [facility] Last Admin: 04/17/18 09:32 Dose: 60 mg - Labs Labs: 04/17/18 06:30 04/17/18 06:30 PT 12.9 SECONDS (9.4-12.5) H 04/15/18 16:58 INR 1.16 04/15/18 16:58 APTT 32.8 Seconds (26.9-38.3) 04/15/18 16:58 Attending/Attestation - Attestation I have personally seen and examined this patient.: Yes I have fully participated in the care of the patient.: Yes I have reviewed all pertinent clinical information, including history, physical exam and plan: Yes Notes (Text): 04/16/18 15:36 LLE swelling Left knee effusion Gout HTN Hx of CAD s/p CABG No overt signs of CHF, pt is euvolemic on exam except for the left knee effusion and LLE swelling. prelim US report is negative for DVT moderate left knee effusion, will have ortho evaluate the knee for possible arthrocentesis ? gout in left big toe, uric acid is elevated and given his history of gout will start pt on colcrys will change lasix to PO cardio on board
[2018-04-16] MEDS ORDERED: Naproxen 550 mg Tab PO SCH (18:00)
--- NOTE | 2018-04-16 18:52 | CP.PCM.CON ---
<Perfecto Hill - Last Filed: 04/16/18 19:37> History of Present Illness - History of Present Illness History of Present Illness: Surgery Consult Note. Dr. Samuel service 82yo M with PMHx of CAD, HTN, HLD, CHF who was admitted for b/l lower extremity edema. During work up, he obtained a CT A/P to evaluate the size of his abdominal aortic aneurysm. General surgery consult was obtained due to incidentally found right sided abdominal wall mass, suspicious for lipoma. Patient denies any abdominal complaints. Denies any nausea or vomiting. No F/C. No increasing weight or abdominal girth. Describes BMs as normal in quality and character, no stool changes. PMD: Dr. Victor PMHx: CAD, HTN, HLD, CHF PSHx: CABG, Bilateral inguinal hernia repairs Family Hx: Non-contributory Social Hx: admits to former tobacco use. Denies ETOH use. Denies illicit drugs NKDA Review of Systems - Review of Systems All systems: reviewed and no additional remarkable complaints except - Constitutional Constitutional: As Per HPI Past Patient History - Infectious Disease Hx of Infectious Diseases: None - Past Medical History & Family History Past Family History: Reviewed and not pertinent - Past Social History Smoking Status: Former Smoker Alcohol: None Home Situation {Lives}: Alone - CARDIAC Hx Cardiac Disorders: Yes Hx Hypertension: Yes - PULMONARY Hx Respiratory Disorders: No - NEUROLOGICAL Hx Neurological Disorder: No - HEENT Hx HEENT Problems: No - RENAL Hx Chronic Kidney Disease: No - ENDOCRINE/METABOLIC Hx Endocrine Disorders: No - HEMATOLOGICAL/ONCOLOGICAL Hx Blood Disorders: No - INTEGUMENTARY Hx Dermatological Problems: No - MUSCULOSKELETAL/RHEUMATOLOGICAL Hx Musculoskeletal Disorders: No - GASTROINTESTINAL Hx Gastrointestinal Disorders: No - GENITOURINARY/GYNECOLOGICAL Hx Genitourinary Disorders: No - PSYCHIATRIC Hx Psychophysiologic Disorder: No Hx Substance Use: No - SURGICAL HISTORY Hx Open Heart Surgery: Yes Other/Comment: hernia repair - ANESTHESIA Hx Anesthesia Reactions: No Hx Malignant Hyperthermia: No Meds Allergies/Adverse Reactions: Allergies Allergy/AdvReac Type Severity Reaction Status Date / Time No Known Allergies Allergy Verified 12/20/17 16:32 - Medications Medications: Current Medications Amlodipine Besylate (Norvasc) 10 mg PO DAILY [facility] Last Admin: 04/16/18 09:46 Dose: Not Given Aspirin (Ecotrin) 81 mg PO DAILY [facility] Last Admin: 04/16/18 09:43 Dose: 81 mg Atorvastatin Calcium (Lipitor) 10 mg PO DAILY [facility] Last Admin: 04/16/18 09:43 Dose: 10 mg Colchicine (Colocrys) 0.6 mg PO DAILY [facility] Doxazosin Mesylate (Cardura) 2 mg PO HS [facility] Last Admin: 04/15/18 22:42 Dose: 2 mg Ezetimibe (Zetia) 10 mg PO DAILY [facility] Last Admin: 04/16/18 09:43 Dose: 10 mg Enoxaparin Sodium (Lovenox) 40 mg SC DAILY [facility]; Protocol Last Admin: 04/16/18 11:40 Dose: Not Given Famotidine (Pepcid) 20 mg PO 1000,2200 [facility] Last Admin: 04/16/18 09:44 Dose: 20 mg Finasteride (Proscar) 5 mg PO DAILY [facility] Last Admin: 04/16/18 09:43 Dose: 5 mg Furosemide (Lasix) 40 mg PO DAILY [facility] Latanoprost (Xalatan Opht) 0 ml OU HS [facility] Losartan Potassium (Cozaar) 100 mg PO DAILY [facility] Last Admin: 04/16/18 09:44 Dose: Not Given Metoprolol Tartrate (Lopressor) 25 mg PO DAILY [facility] Last Admin: 04/16/18 09:43 Dose: Not Given Naproxen (Anaprox Ds) 550 mg PO BID [facility] Last Admin: 04/16/18 17:38 Dose: 550 mg Ticagrelor (Brilinta) 60 mg PO Q12 [facility] Physical Exam - Constitutional Appears: Non-toxic, No Acute Distress - Head Exam Head Exam: ATRAUMATIC, NORMAL INSPECTION, NORMOCEPHALIC - Eye Exam Eye Exam: EOMI, Normal appearance. absent: Scleral icterus - ENT Exam ENT Exam: Mucous Membranes Moist - Neck Exam Neck exam: Positive for: Normal Inspection - Respiratory Exam Respiratory Exam: NORMAL BREATHING PATTERN. absent: Accessory Muscle Use, Respiratory Distress - Cardiovascular Exam Cardiovascular Exam: absent: JVD - GI/Abdominal Exam GI & Abdominal Exam: Soft. absent: Distended, Firm, Guarding, Rebound, Rigid, Tenderness - Extremities Exam Extremities exam: Negative for: calf tenderness - Neurological Exam Neurological exam: Alert, Oriented x3 - Psychiatric Exam Psychiatric exam: Normal Affect, Normal Mood - Skin Skin Exam: Dry, Intact, Normal Color, Warm Results - Vital Signs Recent Vital Signs: Last Vital Signs Temp 99.9 F H 04/16/18 18:00 Pulse 76 04/16/18 18:00 Resp 18 04/16/18 18:00 BP 98/60 L 04/16/18 18:00 Pulse Ox 94 L 04/16/18 05:29 - Labs Result Diagrams: 04/16/18 08:30 04/16/18 08:30 Labs: Laboratory Results - last 24 hr 04/15/18 04/16/18 04/16/18 19:25 02:50 08:30 WBC 7.9 D RBC 3.76 Hgb 10.4 L Hct 32.4 L MCV 86.2 MCH 27.7 MCHC 32.1 RDW 13.5 Plt Count 165 MPV 11.0 Neut % (Auto) 75.5 H Lymph % (Auto) 18.9 L Harvey % (Auto) 5.0 Eos % (Auto) 0.5 L Baso % (Auto) 0.1 Lymph # (Auto) 1.5 Harvey # (Auto) 0.4 Eos # (Auto) 0.0 Baso # (Auto) 0.01 Absolute Neuts (auto) 5.94 Sodium Potassium Chloride Carbon Dioxide Anion Gap BUN Creatinine Est GFR ( Amer) Est GFR (Non-Af Amer) Random Glucose Uric Acid Calcium Total Bilirubin AST ALT Alkaline Phosphatase Troponin I < 0.01 Total Protein Albumin Globulin Albumin/Globulin Ratio Influenza Typ A,B (EIA) Negative for flu a/b 04/16/18 08:30 WBC RBC Hgb Hct MCV MCH MCHC RDW Plt Count MPV Neut % (Auto) Lymph % (Auto) Harvey % (Auto) Eos % (Auto) Baso % (Auto) Lymph # (Auto) Harvey # (Auto) Eos # (Auto) Baso # (Auto) Absolute Neuts (auto) Sodium 136 Potassium 3.7 Chloride 101 Carbon Dioxide 28 Anion Gap 11 BUN 22 H Creatinine 1.1 Est GFR ( Amer) > 60 Est GFR (Non-Af Amer) > 60 Random Glucose 148 H Uric Acid 9.2 H Calcium 8.4 Total Bilirubin 0.7 AST 21 ALT < 6 L Alkaline Phosphatase 61 Troponin I Total Protein 7.0 Albumin 3.5 Globulin 3.5 Albumin/Globulin Ratio 1.0 L Influenza Typ A,B (EIA) Assessment & Plan - Assessment and Plan (Free Text) Assessment: 82yo M with 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 Large 12cm x 9cm x 14cm abdominal wall mass, presumed lipoma; Mass with some mass effect on adjacent ascending colon and cecum. No evidence of obstruction. Plan: - No indications for surgical intervention - Continue medical management as per primary team Further recs as per Dr. Lizzie Hill PGY2 surgery <Kvng Samuel - Last Filed: 04/17/18 20:14> Results - Vital Signs Recent Vital Signs: Last Vital Signs Temp 98.4 F 04/17/18 12:00 Pulse 92 H 04/17/18 12:00 Resp 19 04/17/18 12:00 BP 133/57 L 04/17/18 12:00 Pulse Ox 94 L 04/17/18 06:00 - Labs Result Diagrams: 04/17/18 06:30 04/17/18 06:30 Labs: Laboratory Results - last 24 hr 04/17/18 04/17/18 04/17/18 06:30 06:30 06:30 WBC 7.4 RBC 3.54 Hgb 9.7 L Hct 30.4 L MCV 85.9 MCH 27.4 MCHC 31.9 RDW 13.5 Plt Count 161 MPV 11.4 H Neut % (Auto) 71.4 H Lymph % (Auto) 21.3 L Harvey % (Auto) 5.0 Eos % (Auto) 2.0 Baso % (Auto) 0.3 Lymph # (Auto) 1.6 Harvey # (Auto) 0.4 Eos # (Auto) 0.2 Baso # (Auto) 0.02 Absolute Neuts (auto) 5.29 Sodium 138 Potassium 4.5 Chloride 103 Carbon Dioxide 30 Anion Gap 10 BUN 32 H Creatinine 1.3 Est GFR ( Amer) > 60 Est GFR (Non-Af Amer) 53 Random Glucose 109 Hemoglobin A1c 6.3 Calcium 8.4 Total Bilirubin 0.4 AST 21 ALT < 6 L Alkaline Phosphatase 65 Total Protein 6.5 Albumin 3.2 Globulin 3.3 Albumin/Globulin Ratio 1.0 L Triglycerides 93 Cholesterol 98 L LDL Cholesterol Direct 38 HDL Cholesterol 29 TSH 3rd Generation 04/17/18 06:30 WBC RBC Hgb Hct MCV MCH MCHC RDW Plt Count MPV Neut % (Auto) Lymph % (Auto) Harvey % (Auto) Eos % (Auto) Baso % (Auto) Lymph # (Auto) Harvey # (Auto) Eos # (Auto) Baso # (Auto) Absolute Neuts (auto) Sodium Potassium Chloride Carbon Dioxide Anion Gap BUN Creatinine Est GFR ( Amer) Est GFR (Non-Af Amer) Random Glucose Hemoglobin A1c Calcium Total Bilirubin AST ALT Alkaline Phosphatase Total Protein Albumin Globulin Albumin/Globulin Ratio Triglycerides Cholesterol LDL Cholesterol Direct HDL Cholesterol TSH 3rd Generation 2.76 Attending/Attestation - Attestation I have personally seen and examined this patient.: Yes I have fully participated in the care of the patient.: Yes I have reviewed all pertinent clinical information: Yes Notes (Text): Pt was seen and examined at bedside Agree with above note and assessment Pt with CHF, AAA and CT scan findings of Abdominal wall lipoma Abdomen : Soft, ,NT, ND No peritoneal signs Labs and radiology reviewed Ass: Incidental findings of abdominal wall lipoma Plan: c.w current mx as per primary team we will f.u Plan d.w pt in detail Risk and benefit explained in detail.
--- NOTE | 2018-04-17 00:09 | CARD ---
APPROVED REPORT Date of service: 04/16/2018 EKG Measurement Heart [id number] <Conclusion> Normal sinus rhythm Left axis deviation Right bundle branch block Abnormal ECG
--- NOTE | 2018-04-17 06:56 | CP.PCM.PN ---
Subjective - Date & Time of Evaluation Date of Evaluation: 04/17/18 Time of Evaluation: 06:15 - Subjective Subjective: Awake, no distress, lying in bed, feels better Reason for consultation: Cardiac evaluation of shortness of breath and leg swelling, history of hypertension, hyperlipidemia, BPH, congestive heart failure, former smoker. Seen and examined by me and Dr. Arora Objective - Vital Signs/Intake and Output Vital Signs (last 24 hours): Temp Pulse Resp BP Pulse Ox 98.3 F 66 20 121/63 95 04/17/18 00:01 04/17/18 05:24 04/17/18 00:01 04/17/18 00:01 04/17/18 00:01 Intake and Output: 04/16/18 04/17/18 18:59 06:59 Intake Total 860 120 Output Total 500 Balance 860 -380 - Medications Medications: Current Medications Amlodipine Besylate (Norvasc) 10 mg PO DAILY [facility] Last Admin: 04/16/18 09:46 Dose: Not Given Aspirin (Ecotrin) 81 mg PO DAILY [facility] Last Admin: 04/16/18 09:43 Dose: 81 mg Atorvastatin Calcium (Lipitor) 10 mg PO DAILY [facility] Last Admin: 04/16/18 09:43 Dose: 10 mg Colchicine (Colocrys) 0.6 mg PO DAILY [facility] Doxazosin Mesylate (Cardura) 2 mg PO HS [facility] Last Admin: 04/16/18 22:15 Dose: 2 mg Ezetimibe (Zetia) 10 mg PO DAILY [facility] Last Admin: 04/16/18 09:43 Dose: 10 mg Enoxaparin Sodium (Lovenox) 40 mg SC DAILY [facility]; Protocol Last Admin: 04/16/18 11:40 Dose: Not Given Famotidine (Pepcid) 20 mg PO 1000,2200 [facility] Last Admin: 04/16/18 22:15 Dose: 20 mg Finasteride (Proscar) 5 mg PO DAILY [facility] Last Admin: 04/16/18 09:43 Dose: 5 mg Furosemide (Lasix) 40 mg PO DAILY [facility] Latanoprost (Xalatan Opht) 0 ml OU HS [facility] Last Admin: 04/16/18 22:50 Dose: Not Given Losartan Potassium (Cozaar) 100 mg PO DAILY [facility] Last Admin: 04/16/18 09:44 Dose: Not Given Metoprolol Tartrate (Lopressor) 25 mg PO DAILY [facility] Last Admin: 04/16/18 09:43 Dose: Not Given Naproxen (Anaprox Ds) 550 mg PO BID [facility] Last Admin: 04/16/18 17:38 Dose: 550 mg Ticagrelor (Brilinta) 60 mg PO Q12 [facility] Last Admin: 04/16/18 22:15 Dose: 60 mg - Labs Labs: 04/16/18 08:30 04/16/18 08:30 PT 12.9 SECONDS (9.4-12.5) H 04/15/18 16:58 INR 1.16 04/15/18 16:58 APTT 32.8 Seconds (26.9-38.3) 04/15/18 16:58 - Constitutional Appears: Non-toxic, No Acute Distress - Head Exam Head Exam: NORMAL INSPECTION, NORMOCEPHALIC - Eye Exam Eye Exam: Normal appearance Pupil Exam: NORMAL ACCOMODATION - ENT Exam ENT Exam: Mucous Membranes Moist, Normal Exam - Respiratory Exam Respiratory Exam: Decreased Breath Sounds, Clear to Ausculation Bilateral, NORMAL BREATHING PATTERN - Cardiovascular Exam Cardiovascular Exam: REGULAR RHYTHM, +S1, +S2 Additional comments: Telemetry NSR 70's - GI/Abdominal Exam GI & Abdominal Exam: Soft, Normal Bowel Sounds - Extremities Exam Extremities Exam: Full ROM Additional comments: 1-2+edema knee pain bilateral big toe swollen and pain - Neurological Exam Neurological Exam: Alert, Awake, Oriented x3 - Psychiatric Exam Psychiatric exam: Normal Affect, Normal Mood - Skin Skin Exam: Dry, Normal Color, Warm Assessment and Plan - Assessment and Plan (Free Text) Assessment: An 82 year old male who came in to the ER due to bilateral leg swelling and pain associated with shortness of breath. He was seen by his PMD prior to admission and recommended to come to [facility]. History of abdominal aortic aneurysm (3.2 cms) coronary artery disease post CABG in 2013, lower extremity edema, popliteal cyst in the right knee and cooley;s cyst in the left knee.hypertension, hyperlipidemia,BPH, congestive heart failure, hernia repair, former smoker. Chest X ray showed pulmonary vascular congestion, EKG showed NSR with PVC's, RBBB. Troponin normal x 2. BNP elevated. US of lower extremity pending results. CT of abdomen to evaluate abdominal aortic aneurysm progression. CT of abdomen showed infrarenal abdominal aortic aneurysm measuring 31x42 mm transversely. Incidental finding of large lipoma on the right side of the abdomen in the per icolic gutter which displaces large and bowel medially. Measures 12cm to 9.2 cm wide by 14 cm AP. Surgical consult was done. No surgical intervention at this time. Swollen big toe probably gout. Awaiting uric acid level. started on Naprosyn and Colchicine. Clinically no evidence of congestive heart failure. Cardiac status stable. Plan: Echo done yesterday awaiting final results No distress,Denies shortness of breath Leg and toe pain better On Naprosyn and Colchicine Heart rate controlled Blood pressure controlled On Norvasc 10 mg daily,ASA 81 mg daily, Lipitor 10 mg daily Cardura 2 mg daily,Lovenox 40 mg daily, Proscar 5 mg daily Lasix 40 mg daily, Cozaar 100 mg daily, Lopressor 25 mg daily Continue current medications Continue current treatment For repeat chest X ray today Will follow up Plan and treatment discussed with Dr. Arora
[2018-04-17 07:36] LABS: ALBUMIN 3.2 g/dL (3.0-4.8); ALT/SGPT < 6 U/L (7-56); AST/SGOT 21 U/L (17-59); BLOOD UREA NITROGEN 32 mg/dL (7-21); CALCIUM 8.4 mg/dL (8.4-10.5); GFR NON-AFRICAN AMERICAN 53; HDL CHOLESTEROL 29 mg/dL (29-60)
[2018-04-17 07:42] LABS: LDL CHOLESTEROL 38 mg/dL (0-129)
[2018-04-17 07:45] LABS: BASO # 0.02 K/mm3 (0.0-2.0); BASO % 0.3 % (0.0-3.0); EOS # 0.2 (0.0-0.7); HEMOGLOBIN 9.7 g/dL (14.0-18.0); LYMPH # 1.6 (1.2-3.4); LYMPH % 21.3 % (22.0-35.0); MEAN CELL VOLUME 85.9 fl (80.0-105.0); MEAN CORPUSCULAR HEMOGLOBIN 27.4 pg (25.0-35.0); MEAN CORPUSCULAR HGB CONC 31.9 g/dl (31.0-37.0); MEAN PLATELET VOLUME 11.4 fl (7.0-11.0); MONO # 0.4 (0.1-0.6); RBC 3.54 10^6/uL (3.5-6.1); RED CELL DISTRIBUTION WIDTH 13.5 % (11.5-14.5); WHITE BLOOD COUNT 7.4 10^3/uL (4.5-11.0)
--- NOTE | 2018-04-17 08:18 | CARD ---
APPROVED REPORT Date of service: 04/16/2018 EXAM: Two-dimensional and M-mode echocardiogram with Doppler and color Doppler. INDICATION Congestive Heart Failure 2D DIMENSIONS Left Atrium (2D)5.2 (1.6-4.0cm)IVSd1.2 (0.7-1.1cm) LVDd5.0 (3.9-5.9cm)LVOT Diameter2.6 (1.8-2.4cm) PWd1.2 (0.7-1.1cm)LVDs2.8 (2.5-4.0cm) FS (%) 43.4 %LVEF (%)74.3 (>50%) M-Mode DIMENSIONS Aortic Cusp Exc.1.80 (1.5-2.0cm) Aortic Valve AoV Peak Vaxbhcrs804.0cm/sAoV VTI56.8cmAO Peak GR.41mmHg LVOT Peak Uvafwdcs40.0cm/sLVOT VTI17.50cmAO Mean GR.20mmHg LISBETH (VMAX)1.06kw9LNJ (VTI)1.64cm2 Mitral Valve MV E Hlohxysv57.9cm/sMV A Vwgaewyn524.0cm/sE/A ratio0.7 TDI Lateral E' Peak V15.70cm/sMedial E' Peak V8.29cm/sE/Lateral E'5.3 E/Medial E'10.1 Pulmonary Valve PV Peak Ktejjmcr793.0cm/sPV Peak Grad.11mmHg Tricuspid Valve TR Peak Ugpkcatk006sl/sRAP [id number] Peak Gr.22mmHg [id number] LEFT VENTRICLE The left ventricle is normal size. There is mild concentric left ventricular hypertrophy. Proximal septal thickening is noted. The left ventricular function is normal.EF-65-70% There is normal LV segmental wall motion. Transmitral Doppler flow pattern is Grade III-reversible restrictive diastolic dysfunction. No left ventricle thrombus noted on this study. There is no ventricular septal defect visualized. There is no left ventricular aneurysm. There is no mass noted in the left ventricle. RIGHT VENTRICLE The right ventricle is normal size. There is normal right ventricular wall thickness. The right ventricular systolic function is normal. ATRIA The left atrium is mildly dilated. The right atrium size is normal. The interatrial septum is intact with no evidence for an atrial septal defect. AORTIC VALVE The aortic valve is calcified and displays decreased opening. There is trace aortic regurgitation. There is moderate valvular aortic stenosis. Non coronary Cusp is heavily calcified and immobile. There is no aortic valvular vegetation. MITRAL VALVE The mitral valve is thickened but opens well. Mitral regurgitation is trace to mild. There is no mitral valve stenosis. There is no evidence of mitral valve prolapse. TRICUSPID VALVE The tricuspid valve leaflets are thickened , but open well. There is trace to mild tricuspid regurgitation.RVSP-25 mmof hg. There is no tricuspid valve stenosis. There is no tricuspid valve prolapse or vegetation. PULMONIC VALVE The pulmonary valve is normal in structure. There is no pulmonic valvular regurgitation. There is no pulmonic valvular stenosis. GREAT VESSELS The aortic root is normal in size. The ascending aorta is normal in size. The pulmonary artery is normal. The IVC is normal in size and collapses >50% with inspiration. PERICARDIAL EFFUSION There is no pleural effusion. There is no pericardial effusion. <Conclusion> The left ventricle is normal size. The left ventricular function is normal.EF-65-70% The aortic valve is calcified and displays decreased opening. There is trace aortic regurgitation. There is moderate valvular aortic stenosis. Non coronary Cusp is heavily calcified and immobile. Mitral regurgitation is trace to mild. There is trace to mild tricuspid regurgitation.RVSP-25 mmof hg. There is trace to mild tricuspid regurgitation.RVSP-25 mmof hg. The IVC is normal in size and collapses >50% with inspiration. There is no pericardial effusion.
[2018-04-17 08:19] VITALS: O2SAT 94
[2018-04-17] MEDS ORDERED: Naproxen 550 mg Tab PO PRN (09:05)
[2018-04-17] MEDS: Enoxaparin 40 mg Syringe SC SCH (09:33)
--- NOTE | 2018-04-17 09:53 | RAD ---
Date of service: 04/17/2018 HISTORY: Admission XRAY taken in Poor Inspiration. COMPARISON: No prior. TECHNIQUE: Chest PA and lateral FINDINGS: LUNGS: No active pulmonary disease. PLEURA: No significant pleural effusion identified. No pneumothorax apparent. CARDIOVASCULAR: Aortic calcification and tortuosity Mild cardiomegaly no pulmonary vascular congestion. OSSEOUS STRUCTURES: No significant abnormalities. VISUALIZED UPPER ABDOMEN: Normal. OTHER FINDINGS: None. IMPRESSION: No active disease.
--- NOTE | 2018-04-17 11:24 | CP.PCM.PN ---
<Fernanda Herrera - Last Filed: 04/17/18 11:22> Subjective - Date & Time of Evaluation Date of Evaluation: 04/17/18 Time of Evaluation: 11:22 - Subjective Subjective: Surgery Pt seen and examined. No acute events. Denies fever, nausea, vomiting, obstipation. TOlerating reg diet. AMbulates. Leg swelling improved. Denies abd pain. Objective - Vital Signs/Intake and Output Vital Signs (last 24 hours): Temp Pulse Resp BP Pulse Ox 98.6 F 71 20 124/66 94 L 04/17/18 06:00 04/17/18 10:00 04/17/18 06:00 04/17/18 09:33 04/17/18 06:00 Intake and Output: 04/17/18 04/17/18 06:59 18:59 Intake Total 120 Output Total 500 Balance -380 - Medications Medications: Current Medications Amlodipine Besylate (Norvasc) 10 mg PO DAILY [facility] Last Admin: 04/17/18 09:33 Dose: 10 mg Aspirin (Ecotrin) 81 mg PO DAILY [facility] Last Admin: 04/17/18 09:32 Dose: 81 mg Atorvastatin Calcium (Lipitor) 10 mg PO DAILY [facility] Last Admin: 04/17/18 09:32 Dose: 10 mg Colchicine (Colocrys) 0.6 mg PO DAILY [facility] Last Admin: 04/17/18 09:32 Dose: 0.6 mg Doxazosin Mesylate (Cardura) 2 mg PO HS [facility] Last Admin: 04/16/18 22:15 Dose: 2 mg Ezetimibe (Zetia) 10 mg PO DAILY [facility] Last Admin: 04/17/18 09:35 Dose: 10 mg Enoxaparin Sodium (Lovenox) 40 mg SC DAILY [facility]; Protocol Last Admin: 04/17/18 09:33 Dose: Not Given Famotidine (Pepcid) 20 mg PO 1000,2200 [facility] Last Admin: 04/17/18 09:32 Dose: 20 mg Finasteride (Proscar) 5 mg PO DAILY [facility] Last Admin: 04/17/18 09:32 Dose: 5 mg Furosemide (Lasix) 40 mg PO DAILY [facility] Last Admin: 04/17/18 09:33 Dose: 40 mg Latanoprost (Xalatan Opht) 0 ml OU HS [facility] Last Admin: 04/16/18 22:50 Dose: Not Given Losartan Potassium (Cozaar) 100 mg PO DAILY [facility] Last Admin: 04/17/18 09:33 Dose: 100 mg Metoprolol Tartrate (Lopressor) 25 mg PO DAILY [facility] Last Admin: 04/17/18 09:32 Dose: 25 mg Naproxen (Anaprox Ds) 550 mg PO BID PRN PRN Reason: Pain, moderate (4-7) Ticagrelor (Brilinta) 60 mg PO Q12 [facility] Last Admin: 04/17/18 09:32 Dose: 60 mg - Labs Labs: 04/17/18 06:30 04/17/18 06:30 PT 12.9 SECONDS (9.4-12.5) H 04/15/18 16:58 INR 1.16 04/15/18 16:58 APTT 32.8 Seconds (26.9-38.3) 04/15/18 16:58 - Constitutional Appears: No Acute Distress - Head Exam Head Exam: ATRAUMATIC, NORMAL INSPECTION, NORMOCEPHALIC - Eye Exam Eye Exam: EOMI, Normal appearance, PERRL Pupil Exam: NORMAL ACCOMODATION, PERRL - ENT Exam ENT Exam: Mucous Membranes Moist - Neck Exam Neck Exam: Full ROM - Respiratory Exam Respiratory Exam: NORMAL BREATHING PATTERN - Cardiovascular Exam Cardiovascular Exam: REGULAR RHYTHM - GI/Abdominal Exam GI & Abdominal Exam: Soft, Mass. absent: Distended, Tenderness, Pulsatile Mass, Rebound - Extremities Exam Extremities Exam: Full ROM, Pedal Edema. absent: Normal Inspection, Tenderness - Back Exam Back Exam: NORMAL INSPECTION - Neurological Exam Neurological Exam: Alert, Awake, Oriented x3 - Psychiatric Exam Psychiatric exam: Normal Affect, Normal Mood - Skin Skin Exam: Dry, Intact, Normal Color, Warm Assessment and Plan - Assessment and Plan (Free Text) Assessment: 82yo M with 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 Large 12cm x 9cm x 14cm abdominal wall mass, presumed lipoma; Mass with some mass effect on adjacent ascending colon and cecum. No evidence of obstruction. No pain Plan: - No indications for surgical intervention - Continue medical management as per primary team -We will sign off Further recs as per Dr. Samuel <Kvng Samuel - Last Filed: 04/17/18 20:15> Objective - Vital Signs/Intake and Output Vital Signs (last 24 hours): Temp Pulse Resp BP Pulse Ox 98.4 F 92 H 19 133/57 L 94 L 04/17/18 12:00 04/17/18 12:00 04/17/18 12:00 04/17/18 12:00 04/17/18 06:00 - Labs Labs: 04/17/18 06:30 04/17/18 06:30 PT 12.9 SECONDS (9.4-12.5) H 04/15/18 16:58 INR 1.16 04/15/18 16:58 APTT 32.8 Seconds (26.9-38.3) 04/15/18 16:58 Attending/Attestation - Attestation I have personally seen and examined this patient.: Yes I have fully participated in the care of the patient.: Yes I have reviewed all pertinent clinical information, including history, physical exam and plan: Yes Notes (Text): Pt was seen and examined at bedside Improving clinically No general surgical intervention required f.u prn Plan d.w pt and primary team in detail.
[2018-04-17 12:36] VITALS: BP 133/57; PULSE 92; RESP 19; TEMP 98.4
--- NOTE | 2018-04-17 13:27 | CP.PCM.DIS ---
Provider - Provider Date of Admission: 04/15/18 19:25 Attending physician: Philipp Umanzor MD Primary care physician: Wilmer Victor MD Consults: 04/15/18 19:31 Cardiology Consult Routine Comment: ` Consulting Provider: Juno Arora Consulting Physician: Juno Arora Reason for Consult: CHF exacerbation 04/16/18 00:58 Social Work Referral Routine Comment: admission assessment protocol Physician Instructions: Reason For Exam: Montse score of 7 04/16/18 12:05 Orthopedic Consult Routine Comment: Consulting Provider: Fred Boykin Consulting Physician: Fred Boykin Reason for Consult: Left suprapatellar effusion; ?drainage 04/16/18 15:49 General Surgery Consult Routine Comment: Consulting Provider: Kvng Samuel Consulting Physician: Kvng Samuel Reason for Consult: Large abdominal lipoma Time Spent in preparation of Discharge (in minutes): 45 Diagnosis - Discharge Diagnosis (1) CHF exacerbation Status: Acute Hospital Course - Lab Results Lab Results: Micro Results 04/15/18 22:48 Urine,Clean Catch Urine Culture - Final No Growth (<1,000 CFU/ML) Most Recent Lab Values WBC 7.4 10^3/uL (4.5-11.0) 04/17/18 06:30 RBC 3.54 10^6/uL (3.5-6.1) 04/17/18 06:30 Hgb 9.7 g/dL (14.0-18.0) L 04/17/18 06:30 Hct 30.4 % (42.0-52.0) L 04/17/18 06:30 MCV 85.9 fl (80.0-105.0) 04/17/18 06:30 MCH 27.4 pg (25.0-35.0) 04/17/18 06:30 MCHC 31.9 g/dl (31.0-37.0) 04/17/18 06:30 RDW 13.5 % (11.5-14.5) 04/17/18 06:30 Plt Count 161 10^3/uL (120.0-450.0) 04/17/18 06:30 MPV 11.4 fl (7.0-11.0) H 04/17/18 06:30 Neut % (Auto) 71.4 % (50.0-68.0) H 04/17/18 06:30 Lymph % (Auto) 21.3 % (22.0-35.0) L 04/17/18 06:30 [place] % (Auto) 5.0 % (1.0-6.0) 04/17/18 06:30 Eos % (Auto) 2.0 % (1.5-5.0) 04/17/18 06:30 Baso % (Auto) 0.3 % (0.0-3.0) 04/17/18 06:30 Lymph # (Auto) 1.6 (1.2-3.4) 04/17/18 06:30 [place] # (Auto) 0.4 (0.1-0.6) 04/17/18 06:30 Eos # (Auto) 0.2 (0.0-0.7) 04/17/18 06:30 Baso # (Auto) 0.02 K/mm3 (0.0-2.0) 04/17/18 06:30 Absolute Neuts (auto) 5.29 (1.4-6.5) 04/17/18 06:30 PT 12.9 SECONDS (9.4-12.5) H 04/15/18 16:58 INR 1.16 04/15/18 16:58 APTT 32.8 Seconds (26.9-38.3) 04/15/18 16:58 Sodium 138 mmol/L (132-148) 04/17/18 06:30 Potassium 4.5 mmol/L (3.6-5.0) 04/17/18 06:30 Chloride 103 mmol/L (98-107) 04/17/18 06:30 Carbon Dioxide 30 mmol/L (21-33) 04/17/18 06:30 Anion Gap 10 (10-20) 04/17/18 06:30 BUN 32 mg/dL (7-21) H 04/17/18 06:30 Creatinine 1.3 mg/dl (0.8-1.5) 04/17/18 06:30 Est GFR ( Amer) > 60 04/17/18 06:30 Est GFR (Non-Af Amer) 53 04/17/18 06:30 Random Glucose 109 mg/dL (70-110) 04/17/18 06:30 Hemoglobin A1c 6.3 % (4.2-6.5) 04/17/18 06:30 Uric Acid 9.2 mg/dL (3.5-8.5) H 04/16/18 08:30 Calcium 8.4 mg/dL (8.4-10.5) 04/17/18 06:30 Total Bilirubin 0.4 mg/dL (0.2-1.3) 04/17/18 06:30 AST 21 U/L (17-59) 04/17/18 06:30 ALT < 6 U/L (7-56) L 04/17/18 06:30 Alkaline Phosphatase 65 U/L (38-126) 04/17/18 06:30 Troponin I < 0.01 ng/mL 04/16/18 02:50 NT-Pro-B Natriuret Pep 944 pg/mL (0-450) H 04/15/18 16:58 Total Protein 6.5 g/dL (5.8-8.3) 04/17/18 06:30 Albumin 3.2 g/dL (3.0-4.8) 04/17/18 06:30 Globulin 3.3 gm/dL 04/17/18 06:30 Albumin/Globulin Ratio 1.0 (1.1-1.8) L 04/17/18 06:30 Triglycerides 93 mg/dL (35-160) 04/17/18 06:30 Cholesterol 98 mg/dL (130-200) L 04/17/18 06:30 LDL Cholesterol Direct 38 mg/dL (0-129) 04/17/18 06:30 HDL Cholesterol 29 mg/dL (29-60) 04/17/18 06:30 TSH 3rd Generation 2.76 mIU/mL (0.46-4.68) 04/17/18 06:30 Urine Color Yellow (YELLOW) 04/15/18 16:58 Urine Appearance Clear (CLEAR) 04/15/18 16:58 Urine pH 6.0 (4.7-8.0) 04/15/18 16:58 Ur Specific Raymond 1.015 (1.005-1.035) 04/15/18 16:58 Urine Protein Trace mg/dL (<30 mg/dL) H 04/15/18 16:58 Urine Glucose (UA) Negative mg/dL (NEGATIVE) 04/15/18 16:58 Urine Ketones Negative mg/dL (NEGATIVE) 04/15/18 16:58 Urine Blood Negative (NEGATIVE) 04/15/18 16:58 Urine Nitrate Negative (NEGATIVE) 04/15/18 16:58 Urine Bilirubin Negative (NEGATIVE) 04/15/18 16:58 Urine Urobilinogen 0.2 E.U./dL (<1 E.U./dL) 04/15/18 16:58 Ur Leukocyte Esterase Trace Indra/uL (NEGATIVE) H 04/15/18 16:58 Urine RBC 0 - 2 /hpf (0-2) 04/15/18 16:58 Urine WBC 1 - 3 /hpf (0-6) 04/15/18 16:58 Ur Epithelial Cells 0 - 2 /hpf (0-5) 04/15/18 16:58 Influenza Typ A,B (EIA) Negative for flu a/b (NEGATIVE) 04/15/18 19:25 - Hospital Course Hospital Course: Upon Admisson: Pt is a 82 yo M with pmhx of 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 Pt states that he had also been having L sided knee pain which he noticed worsen yesterday. The pt is typically active and walks on a treadmill for 20mins 3x/day every day of the week. He states that he just woke up and noticed the swelling and then knee pain as well. He denies fevers, chills, headaches, chest pain, palpitations, SOB, dyspnea on exertion, orthopnea, abd pain, n/v, c/d, dysuria or hematuria. He does admit to b/l LE swelling and states that his L knee is also swollen. He states that he has been compliant with his medications but has been eating a diet that is a little higher in salt. Hospital Course: Pt was being worked up for CHF vs DVT vs L knee effusion whcih is causing b/l pedal edema but worse edema on the L than the R. Pt had LE US done which showed (-) for DVT on pre-henao read. Pts L knee XR shows mod- large L sided knee effusion. Pt was started on colchicine the next day as pt has questionable hx of gout. Pt was also started on lasix and had an ehco done. Cardio was consulted for suspicion of CHF exacerbation. Pts warp scouring vat tender is consulted for eval, since pt has no echo on records at this hospital. Pt was noted to have normal LVEF 65- 70%. Pt was then given naprosyn which had improved the pts L knee pain and swelling. Ortho was consulted as well and stated that the pt would be seen on Wednesday but could also be followed up as on outpt. Cardio saw the pts echo and cleared the pt for d/c. Pt had no JVD but did have b/l pedal edema and bibasilar crackles on exam. Pts BNP was elevated to 944. Pt was transitioned to PO lasix as the pts edema had improved. Pt and family stated that they would rather go home and be seen in the office tomorrow as pts L knee pain. Pt was cleared for discharge and the pt expressed understanding of the plan for discharge. Pt expressed agreement with the plan to follow up with ortho for drainage of the L knee effusion and with cardio for CHF monitoring given cardiac hx. All of the pts questions and concerns were addressed prior to d/c. For further details please refer to the pts medical records. Discharge Exam - Head Exam Head Exam: ATRAUMATIC, NORMAL INSPECTION, NORMOCEPHALIC - Eye Exam Eye Exam: EOMI, Normal appearance, PERRL - Respiratory Exam Respiratory Exam: Clear to PA & Lateral, NORMAL BREATHING PATTERN, UNREMARKABLE. absent: Accessory Muscle Use, Rales, Rhonchi, Wheezes, Respiratory Distress, Stridor - Cardiovascular Exam Cardiovascular Exam: RRR, +S1, +S2. absent: Gallop, Rubs - GI/Abdominal Exam GI & Abdominal Exam: Normal Bowel Sounds, Soft, Unremarkable. absent: Distended, Firm, Guarding, Tenderness - Extremities Exam Extremities exam: joint swelling (L knee effusion ), normal capillary refill, pedal pulses present - Back Exam Back exam: NORMAL INSPECTION. absent: CVA tenderness (L), CVA tenderness (R) - Neurological Exam Neurological exam: Alert, Oriented x3 - Psychiatric Exam Psychiatric exam: Normal Affect, Normal Mood Discharge Plan - Discharge Medications Prescriptions: Colchicine 0.6 mg PO DAILY #7 tablet Naproxen [Anaprox DS] 550 mg PO BID PRN #14 tab PRN Reason: Pain, Moderate (4-7) - Follow Up Plan Condition: GOOD Disposition: HOME/ ROUTINE Instructions: Lifestyle Changes to Manage Gout, Colchicine, Naproxen, Low Purine Diet Additional Instructions: - Please follow up with your Primary Care Doctor within 1 week after discharge. - Please go to your appointment with Dr. Krishnamurthy, orthopedics tomorrow as scheduled. - We will give you a new medication called Colocrys which you will take .6mg tablets by mouth daily. - Please continue all of your other home medications as directed. - If you have any new or worsening symptoms please return to your nearest emergency department. Referrals: Wilmer Victor MD [Primary Care Provider] -
--- NOTE | 2018-04-18 18:46 | US ---
HISTORY: Leg pain and swelling. Evaluate for DVT PHYSICIAN(S): Andrey Kerr MD. TECHNIQUE: Duplex sonography and color-flow Doppler with graded compression were used to evaluate the deep venous systems of both lower extremities. FINDINGS: The visualized deep venous systems of both lower extremities are sonographically normal and compressible. Normal wave forms and augmentation are seen. There is no sonographic evidence for deep venous thrombosis in the visualized segments of both lower extremities. IMPRESSION: No sonographic evidence for deep venous thrombosis in the visualized segments of both lower extremities.
== END 2018-04-17 15:57 | disposition home or self-care (01) ==
LOC: ED 15:46 → ERH 19:25 → 2RNO 23:34
PROVIDERS: ADMIT Hospitalist; ATTEND Hospitalist
DX: I11.0 Hypertensive heart disease with heart failure (principal); I50.9 Heart failure, unspecified; I25.10 Atherosclerotic heart disease of native coronary artery without angina pectoris; N40.0 Benign prostatic hyperplasia without lower urinary tract symptoms; M17.0 Bilateral primary osteoarthritis of knee; D17.1 Benign lipomatous neoplasm of skin and subcutaneous tissue of trunk; I71.4 Abdominal aortic aneurysm, without rupture; M10.9 Gout, unspecified; E78.5 Hyperlipidemia, unspecified; Z95.1 Presence of aortocoronary bypass graft; Z87.891 Personal history of nicotine dependence; Z79.02 Long term (current) use of antithrombotics/antiplatelets; Z79.82 Long term (current) use of aspirin
CPT/HCPCS: 36415; 71045; 71046; 73560; 74176; 80053; 80061; 81001; 83036; 83880; 84443; 84484; 84550; 85025; 85610; 85730; 87086; 87804; 93005; 93306; 93970; 96374; 99285; G0378; J1940

== ENCOUNTER 2018-05-16 07:15 | Outpatient (CLI) | payer MEDICARE, BC | END 2018-05-16 07:16 | disposition home or self-care (01) | LOC: CARDIO 07:15 ==

== ENCOUNTER 2018-06-27 07:11 | Inpatient (IN) | payer MEDICARE, BC ==
[2018-06-27 07:12] VITALS: BMI 27.6
[2018-06-27] MEDS ORDERED: Sodium Chloride 0.9% 500 ML IV STA (07:45)
--- NOTE | 2018-06-27 07:50 | ED PDOC ---
Arrival/HPI - History of Present Illness Narrative History of Present Illness (Text): 06/27/18 07:46 Patient is a 82 year old male with past medical history of CAD s/p CABG (2012), HTN, HLD, BPH, CHF presenting with chief complaint of blood in the urine starting a week ago. Patient went to PMD and was prescribed ciprofloxacin which did not improve symptoms. Patient admits to burning with urination and passage of both bright red and dark clots. Of note, patient underwent cardiac cath recently at [facility] which was unremarkable. Denies fevers, chills, nausea, vomiting, chest pain, shortness of breath, abdominal pain, diarrhea, back pain. Urologist: Dr. Thao Time/Duration: > week Symptom Onset: Sudden Symptom Course: Unchanged <Nona Rodriguez - Last Filed: 06/27/18 12:15> <Damir Valdez - Last Filed: 06/27/18 18:18> - General Time Seen by Provider: 06/27/18 07:15 Past Medical History - Provider Review Nursing Documentation Reviewed: Yes - Infectious Disease Hx of Infectious Diseases: None - Cardiac Hx Cardiac Disorders: Yes Hx Hypertension: Yes - Pulmonary Hx Respiratory Disorders: No - Neurological Hx Neurological Disorder: No - HEENT Hx HEENT Disorder: No - Renal Hx Renal Disorder: No - Endocrine/Metabolic Hx Endocrine Disorders: No - Hematological/Oncological Hx Blood Disorders: No - Integumentary Hx Dermatological Disorder: No - Musculoskeletal/Rheumatological Hx Musculoskeletal Disorders: No - Gastrointestinal Hx Gastrointestinal Disorders: No - Genitourinary/Gynecological Hx Genitourinary Disorders: No - Psychiatric Hx Psychophysiologic Disorder: No Hx Substance Use: No - Surgical History Hx Cardiac Catheterization: Yes Hx Coronary Artery Bypass Graft: Yes - Anesthesia Hx Anesthesia Reactions: No Hx Malignant Hyperthermia: No <Nona Rodriguez - Last Filed: 06/27/18 12:15> - Provider Review Primary Care Physician: Wilmer Victor MD <Damir Valdez - Last Filed: 06/27/18 18:18> Family/Social History - Physician Review Nursing Documentation Reviewed: Yes Family/Social History: No Known Family HX Smoking Status: Former Smoker Hx Alcohol Use: No Hx Substance Use: No <Nona Rodriguez - Last Filed: 06/27/18 12:15> Allergies/Home Meds <Rodriguez,Agape L - Last Filed: 06/27/18 12:15> <IsaiascasandraDamir - Last Filed: 06/27/18 18:18> Allergies/Adverse Reactions: Allergies No Known Allergies Allergy (Verified 06/27/18 07:29) Home Medications: Home Meds Medication Instructions Recorded Confirmed Doxazosin [Cardura] 2 mg PO HS 12/26/14 06/27/18 Furosemide [Lasix] 40 mg PO DAILY 12/26/14 06/27/18 Latanoprost 0.005% Opht [Xalatan 1 drop OU DAILY 12/26/14 06/27/18 Opht] Aspirin [Ecotrin] 81 mg PO DAILY 09/23/15 06/27/18 Ezetimibe/Simvastatin [Vytorin 1 tab PO DAILY 09/23/15 06/27/18 10-20 mg Tablet] Finasteride 5 mg PO DAILY 09/23/15 06/27/18 Irbesartan 300 mg PO DAILY 09/23/15 06/27/18 Metoprolol Tartrate 25 mg PO BID 09/23/15 06/27/18 Potassium Chloride 10 meq PO DAILY 09/23/15 06/27/18 Cholecalciferol [Vitamin D 1000 IU] 1 tab PO DAILY 04/16/18 06/27/18 Ticagrelor [Brilinta] 90 mg PO BID 04/16/18 06/27/18 Allopurinol [Zyloprim] 100 mg PO DAILY 05/16/18 06/27/18 Cefpodoxime [Vantin] 100 mg PO BID 06/27/18 06/27/18 Review of Systems - Physician Review All systems were reviewed & negative as marked: Yes - Review of Systems Respiratory: Normal Cardiovascular: Normal Gastrointestinal: Normal Genitourinary Male: Hematuria <RodriguezYenyyang L - Last Filed: 06/27/18 12:15> Physical Exam Vital Signs Reviewed: Yes Vital Signs Temp Pulse Resp BP Pulse Ox 06/27/18 07:23 98.6 F 39 L 18 124/47 L 97 Temperature: Afebrile Blood Pressure: Normal Pulse: Bradycardic Respiratory Rate: Normal Appearance: Positive for: Well-Appearing, Comfortable Pain Distress: None Mental Status: Positive for: Alert and Oriented X 3 - Systems Exam Head: Present: Atraumatic, Normocephalic Pupils: Present: PERRL Extroacular Muscles: Present: EOMI Conjunctiva: Present: Normal Mouth: Present: Moist Mucous Membranes Respiratory/Chest: Present: Clear to Auscultation, Good Air Exchange. No: Respiratory Distress, Accessory Muscle Use Cardiovascular: Present: Regular Rate and Rhythm, Normal S1, S2, Bradycardic Abdomen: No: Tenderness, Distention Genitourinary Male: Present: Normal External Genitalia Neurological: Present: GCS=15, CN II-XII Intact, Speech Normal Skin: Present: Warm, Dry, Normal Color Psychiatric: Present: Alert, Oriented x 3 <Nona Rodriguez L - Last Filed: 06/27/18 12:15> Vital Signs Temp Pulse Resp BP Pulse Ox 06/27/18 07:23 98.6 F 39 L 18 124/47 L 97 <Damir Valdez - Last Filed: 06/27/18 18:18> Medical Decision Making ED Course and Treatment: 06/27/18 07:55 Impression: 83 year old male with hematuria Plan: - CBC, CMP - Lipase, Mg - Urinalysis - CT abd/pelvis - Reassess and disposition Prior Visits: Notes and results from previous visits were reviewed. Progress Notes: 06/27/18 07:56 FINDINGS: LOWER THORAX: Unremarkable. LIVER: Unremarkable. No gross lesion or ductal dilatation. GALLBLADDER AND BILE DUCTS: Gallstones are seen without evidence of acute cholecystitis PANCREAS: Unremarkable. No gross lesion or ductal dilatation. SPLEEN: Unremarkable. ADRENALS: Unremarkable. No mass. KIDNEYS AND URETERS: Mild dilatation of the collecting system of the kidneys noted without evidence of obstructing stone. VASCULATURE: Unremarkable. No aortic aneurysm. No aortic atherosclerotic calcification or mural plaque present. BOWEL: Unremarkable. No obstruction. No gross mural thickening. Colonic diverticulosis seen without evidence of diverticulitis APPENDIX: No evidence of acute appendicitis PERITONEUM: Again seen is large lipoma in the right aspect of the abdomen. No free fluid. No free air. LYMPH NODES: Unremarkable. No enlarged lymph nodes. BLADDER: Heterogeneous opacity in the bladder noted could represent large blood clot. The possibility of bladder neoplasm should be excluded. Further evaluation by ultrasound is suggested. REPRODUCTIVE: Enlarged prostate is again noted. BONES: No acute fracture. OTHER FINDINGS: None. IMPRESSION: Mildly dilated collecting system of the kidneys without evidence of obstructing stone. Heterogeneous opacity in the bladder may represent clot or less likely neoplasm. Further evaluation by ultrasound is suggested. Enlarged prostate. The with the medical the the the the lung 06/27/18 12:18 Rocephin administere.d Case discussed with Dr. Thao. Case discussed with Dr. Irby who accepts patient for admission. Labs and imaging reviewed. Patient in agreement with plan of management. - EKG Interpretation EKG Interpretation (Text): 06/27/18 08:14 frequent PVCs, RBBB Interpreted by ED Physician: Yes Type: 12 lead EKG <Nona Rodriguez L - Last Filed: 06/27/18 12:15> ED Course and Treatment: 06/27/18 18:17 pt seen with residnet agree in resident findings. s/p gross hematuria. h/h stable vitals stable. ct shows clots. bladder scan no retention. discuss with dr thao agrees to admission. hospiatlist accepts. - Lab Interpretations Lab Results: PT 12.1 SECONDS (9.4-12.5) 06/27/18 08:00 INR 1.07 06/27/18 08:00 APTT 33.2 Seconds (26.9-38.3) 06/27/18 08:00 Troponin I < 0.01 ng/mL 06/27/18 08:00 Total Bilirubin 0.5 mg/dL (0.2-1.3) 06/27/18 08:00 AST 22 U/L (17-59) 06/27/18 08:00 ALT 11 U/L (7-56) 06/27/18 08:00 Alkaline Phosphatase 68 U/L (38-126) 06/27/18 08:00 Total Protein 6.8 g/dL (5.8-8.3) 06/27/18 08:00 Albumin 3.7 g/dL (3.0-4.8) 06/27/18 08:00 Globulin 3.1 gm/dL 06/27/18 08:00 Albumin/Globulin Ratio 1.2 (1.1-1.8) 06/27/18 08:00 Lipase 86 U/L (23-300) 06/27/18 08:00 Urine Color Dark red (YELLOW) 06/27/18 07:46 Urine Appearance Bloody (CLEAR) 06/27/18 07:46 Urine pH 7.0 (4.7-8.0) 06/27/18 07:46 Ur Specific [place] 1.025 (1.005-1.035) 06/27/18 07:46 Urine Protein >=300 mg/dL (<30 mg/dL) H 06/27/18 07:46 Urine Glucose (UA) 250 mg/dL (NEGATIVE) H 06/27/18 07:46 Urine Ketones 15 mg/dL (NEGATIVE) H 06/27/18 07:46 Urine Blood Large (NEGATIVE) H 06/27/18 07:46 Urine Nitrate Positive (NEGATIVE) H 06/27/18 07:46 Urine Bilirubin Large (NEGATIVE) H 06/27/18 07:46 Urine Urobilinogen 1.0 E.U./dL (<1 E.U./dL) H 06/27/18 07:46 Ur Leukocyte Esterase Small Indra/uL (NEGATIVE) H 06/27/18 07:46 Urine RBC Tntc /hpf (0-2) H 06/27/18 07:46 Urine WBC Tntc /hpf (0-6) H 06/27/18 07:46 Urine Bacteria Large /hpf (NONE) 06/27/18 07:46 - RAD Interpretation Radiology Orders: 06/27/18 07:45 ABD & PELVIS W/O PO OR IV CONT [CT] Stat - Medication Orders Current Medication Orders: Discontinued Medications Sodium Chloride (Sodium Chloride 0.9%) 500 mls @ 1,000 mls/hr IV .Q30M STA Stop: 06/27/18 08:14 Last Admin: 06/27/18 08:07 Dose: 1,000 mls/hr eMAR Start Stop Document 06/27/18 08:07 RUBY (Rec: 06/27/18 08:07 RUBY [id number]) Intravenous Solution Start Date 06/27/18 Start Time 08:07 End Date 06/27/18 End time 08:37 Total Infusion Time 30 Ceftriaxone Sodium (Rocephin 1 Gram Ivpb) 1 gm in 100 mls @ 100 mls/hr IVPB STAT STA; Protocol Stop: 06/27/18 10:49 Last Admin: 06/27/18 10:24 Dose: 100 mls/hr eMAR Start Stop Document 06/27/18 10:24 AHUJP (Rec: 06/27/18 10:25 [id number]) Intravenous Solution Start Date 06/27/18 Start Time 10:25 End Date 06/27/18 End time 10:55 Total Infusion Time 30 <Damir Valdez - Last Filed: 06/27/18 18:18> - PA / WARP TESTER / Resident Statement / has reviewed & agrees with the documentation as recorded. / has examined the patient and agrees with the treatment plan. <Damir Valdez - Last Filed: 06/27/18 18:18> Disposition/Present on Arrival - Present on Arrival Any Indicators Present on Arrival: No History of DVT/PE: No History of Uncontrolled Diabetes: No Urinary Catheter: No History of Decub. Ulcer: No History Surgical Site Infection Following: CABG - Mediastinitis - Disposition Have Diagnosis and Disposition been Completed?: Yes Disposition Time: 11:30 <Nona Rodriguez - Last Filed: 06/27/18 12:15> <Damir Valdez - Last Filed: 06/27/18 18:18> - Disposition Diagnosis: Hematuria Disposition: HOME/ ROUTINE Patient Problems: Current Active Problems Problem Status Onset Hematuria Acute Condition: STABLE
[2018-06-27 08:17] LABS: BASO # 0.02 K/mm3 (0.0-2.0); BASO % 0.4 % (0.0-3.0); EOS # 0.1 (0.0-0.7); EOS % 1.6 % (1.5-5.0); HEMOGLOBIN 10.6 g/dL (14.0-18.0); LYMPH # 1.1 (1.2-3.4); LYMPH % 22.9 % (22.0-35.0); MEAN CELL VOLUME 84.1 fl (80.0-105.0); MEAN CORPUSCULAR HEMOGLOBIN 28.1 pg (25.0-35.0); MEAN CORPUSCULAR HGB CONC 33.4 g/dl (31.0-37.0); MEAN PLATELET VOLUME 11.5 fl (7.0-11.0); MONO # 0.7 (0.1-0.6); MONO % 14.6 % (1.0-6.0); RBC 3.77 10^6/uL (3.5-6.1); RED CELL DISTRIBUTION WIDTH 15.1 % (11.5-14.5); WHITE BLOOD COUNT 4.9 10^3/uL (4.5-11.0)
[2018-06-27 08:26] LABS: INR 1.07; PARTIAL THROMBOPLASTIN TIME 33.2 Seconds (26.9-38.3); PROTHROMBIN TIME 12.1 SECONDS (9.4-12.5)
[2018-06-27 08:29] LABS: ALB/GLOB RATIO 1.2 (1.1-1.8); ALBUMIN 3.7 g/dL (3.0-4.8); ALT/SGPT 11 U/L (7-56); AST/SGOT 22 U/L (17-59); BLOOD UREA NITROGEN 56 mg/dL (7-21); CALCIUM 8.6 mg/dL (8.4-10.5); GFR NON-AFRICAN AMERICAN 34; LIPASE 86 U/L (23-300)
[2018-06-27 08:40] LABS: TROPONIN I < 0.01 ng/mL
--- NOTE | 2018-06-27 09:10 | CT ---
Date of service: 06/27/2018 PROCEDURE: CT Abdomen and Pelvis without intravenous contrast HISTORY: hematuria COMPARISON: Comparison is made to the previous study dated 04/16/2018 TECHNIQUE: Axial and reformatted coronal and sagittal CT images of the abdomen and pelvis were obtained without IV or oral contrast administration0. Contrast dose: 0 Radiation dose: Total exam DLP = 597.43 mGy-cm. This CT exam was performed using one or more of the following dose reduction techniques: Automated exposure control, adjustment of the mA and/or kV according to patient size, and/or use of iterative reconstruction technique. FINDINGS: LOWER THORAX: Unremarkable. LIVER: Unremarkable. No gross lesion or ductal dilatation. GALLBLADDER AND BILE DUCTS: Gallstones are seen without evidence of acute cholecystitis PANCREAS: Unremarkable. No gross lesion or ductal dilatation. SPLEEN: Unremarkable. ADRENALS: Unremarkable. No mass. KIDNEYS AND URETERS: Mild dilatation of the collecting system of the kidneys noted without evidence of obstructing stone. VASCULATURE: Unremarkable. No aortic aneurysm. No aortic atherosclerotic calcification or mural plaque present. BOWEL: Unremarkable. No obstruction. No gross mural thickening. Colonic diverticulosis seen without evidence of diverticulitis APPENDIX: No evidence of acute appendicitis PERITONEUM: Again seen is large lipoma in the right aspect of the abdomen. No free fluid. No free air. LYMPH NODES: Unremarkable. No enlarged lymph nodes. BLADDER: Heterogeneous opacity in the bladder noted could represent large blood clot. The possibility of bladder neoplasm should be excluded. Further evaluation by ultrasound is suggested. REPRODUCTIVE: Enlarged prostate is again noted. BONES: No acute fracture. OTHER FINDINGS: None. IMPRESSION: Mildly dilated collecting system of the kidneys without evidence of obstructing stone. Heterogeneous opacity in the bladder may represent clot or less likely neoplasm. Further evaluation by ultrasound is suggested. Enlarged prostate. The with the medical the the the the lung
[2018-06-27 09:44] LABS: URINE BILIRUBIN LARGE (NEGATIVE); URINE BLOOD LARGE (NEGATIVE); URINE GLUCOSE (UA) 250 mg/dL (NEGATIVE); URINE LEUKOCYTE ESTERASE SMALL Leu/uL (NEGATIVE); URINE PROTEIN >=300 mg/dL (<30 mg/dL)
[2018-06-27 09:50] LABS: URINE APPEARANCE BLOODY (CLEAR); URINE COLOR DARK RED (YELLOW)
[2018-06-27] MEDS ORDERED: cefTRIAXone 1 gm 1 GM/100 ML BAG IVPB STA (09:50)
[2018-06-27 09:55] LABS: URINE RBC TNTC /hpf (0-2)
[2018-06-27 09:56] LABS: URINE BACTERIA LARGE /hpf; URINE WBC TNTC /hpf (0-6)
--- NOTE | 2018-06-27 12:32 | CARD ---
APPROVED REPORT Date of service: 06/27/2018 EKG Measurement Heart [id number] <Conclusion> Sinus rhythm with frequent and consecutive premature ventricular complexes Right bundle branch block Left anterior fascicular block Bifascicular block Septal infarct, age Old. Abnormal ECG
[2018-06-27] MEDS ORDERED: Sodium Chloride 0.9% 1,000 ML IV SCH (13:45)
[2018-06-27] MEDS ORDERED: Non Formulary Medication (Ezetimibe/Simvastatin [Vytorin 10-20 Mg Tablet] 1 TAB) PO SCH (13:45)
--- NOTE | 2018-06-27 13:49 | CP.PCM.HP ---
<Maikol Ramos - Last Filed: 06/27/18 14:01> History of Present Illness - History of Present Illness History of Present Illness: Medicine H&P for Dr. Irby CC: Hematuria/Dysuria Patient is an 83 yo M with PMH of CAD s/p CABG, HTN, HLD, BPH, and CHFpEF presents to [facility] for 4 day history of hematuria. Patient states that he intermittently had pink urine with dysuria 4 days ago. He went to his PMD, who gave him PO abx. However, patient states that his symptoms did not resolve and hematuria worsened. Patient presents to [facility] ED today with constant dark red urine with blood clots. Patient also reports some bladder fullness. Of note, patient had cardiac catherization about 1-2 weeks ago due to abnormal stress test. Cardiac catherization was unremarkable. Patient was continued on Brillinta , which he has been on for ~1 year, and ASA. Currently, patient denies CP, SOB, n/v/d, abdominal pain, fever, chills, [place], or dizziness. PMH: CAD s/p CABG, HTN, HLD, BPH, and CHFpEF Surg: CABG All: NKDA SH: Denied EtOH, tobacco, and illicit drug use FHx: Non-contributory PMD: [place]is Uro: [place] Present on Admission - Present on Admission Any Indicators Present on Admission: No Review of Systems - Review of Systems All systems: reviewed and no additional remarkable complaints except (12 point ROS reviewed and is negative other than what is stated in HPI.) Past Patient History - Infectious Disease Hx of Infectious Diseases: None - Past Social History Smoking Status: Former Smoker - CARDIAC Hx Cardiac Disorders: Yes Hx Hypertension: Yes - PULMONARY Hx Respiratory Disorders: No - NEUROLOGICAL Hx Neurological Disorder: No - HEENT Hx HEENT Problems: No - RENAL Hx Chronic Kidney Disease: No - ENDOCRINE/METABOLIC Hx Endocrine Disorders: No - HEMATOLOGICAL/ONCOLOGICAL Hx Blood Disorders: No - INTEGUMENTARY Hx Dermatological Problems: No - MUSCULOSKELETAL/RHEUMATOLOGICAL Hx Musculoskeletal Disorders: No - GASTROINTESTINAL Hx Gastrointestinal Disorders: No - GENITOURINARY/GYNECOLOGICAL Hx Genitourinary Disorders: No - PSYCHIATRIC Hx Psychophysiologic Disorder: No Hx Substance Use: No - SURGICAL HISTORY Hx Cardiac Catheterization: Yes Hx Coronary Artery Bypass Graft: Yes - ANESTHESIA Hx Anesthesia Reactions: No Hx Malignant Hyperthermia: No Meds Allergies/Adverse Reactions: Allergies Allergy/AdvReac Type Severity Reaction Status Date / Time No Known Allergies Allergy Verified 06/27/18 07:29 Physical Exam - Constitutional Appears: No Acute Distress - Head Exam Head Exam: NORMAL INSPECTION - Eye Exam Eye Exam: Normal appearance - ENT Exam ENT Exam: Mucous Membranes Moist. absent: Normal Exam - Neck Exam Neck exam: Positive for: Normal Inspection - Respiratory Exam Respiratory Exam: Clear to Auscultation Bilateral. absent: Rales, Rhonchi, Wheezes - Cardiovascular Exam Cardiovascular Exam: RRR, +S1, +S2, Systolic Murmur. absent: Diastolic murmur, Gallop, Rubs - GI/Abdominal Exam GI & Abdominal Exam: Soft. absent: Distended, Guarding, Rebound, Tenderness - Extremities Exam Extremities exam: Positive for: normal inspection - Back Exam Back exam: NORMAL INSPECTION - Neurological Exam Neurological exam: Alert, CN II-XII Intact, Oriented x3 - Psychiatric Exam Psychiatric exam: Normal Affect, Normal Mood - Skin Skin Exam: Normal Color, Warm Results - Vital Signs Recent Vital Signs: Last Vital Signs Temp 98.6 F 06/27/18 12:36 Pulse 96 H 06/27/18 12:36 Resp 18 06/27/18 12:36 BP 145/94 H 06/27/18 12:36 Pulse Ox 97 06/27/18 12:45 - Labs Result Diagrams: 06/27/18 08:00 06/27/18 08:00 Labs: Laboratory Results - last 24 hr 06/27/18 06/27/18 06/27/18 07:46 08:00 08:00 WBC 4.9 D RBC 3.77 Hgb 10.6 L Hct 31.7 L MCV 84.1 MCH 28.1 MCHC 33.4 RDW 15.1 H Plt Count 118 L MPV 11.5 H Neut % (Auto) 60.5 Lymph % (Auto) 22.9 [place] % (Auto) 14.6 H Eos % (Auto) 1.6 Baso % (Auto) 0.4 Lymph # (Auto) 1.1 L [place] # (Auto) 0.7 H Eos # (Auto) 0.1 Baso # (Auto) 0.02 Absolute Neuts (auto) 2.98 PT 12.1 INR 1.07 APTT 33.2 Sodium Potassium Chloride Carbon Dioxide Anion Gap BUN Creatinine Est GFR ( Amer) Est GFR (Non-Af Amer) Random Glucose Calcium Magnesium Total Bilirubin AST ALT Alkaline Phosphatase Lactate Dehydrogenase Total Creatine Kinase Troponin I Total Protein Albumin Globulin Albumin/Globulin Ratio Lipase Urine Color Dark red Urine Appearance Bloody Urine pH 7.0 Ur Specific [place] 1.025 Urine Protein >=300 H Urine Glucose (UA) 250 H Urine Ketones 15 H Urine Blood Large H Urine Nitrate Positive H Urine Bilirubin Large H Urine Urobilinogen 1.0 H Ur Leukocyte Esterase Small H Urine RBC Tntc H Urine WBC Tntc H Urine Bacteria Large 06/27/18 08:00 WBC RBC Hgb Hct MCV MCH MCHC RDW Plt Count MPV Neut % (Auto) Lymph % (Auto) [place] % (Auto) Eos % (Auto) Baso % (Auto) Lymph # (Auto) [place] # (Auto) Eos # (Auto) Baso # (Auto) Absolute Neuts (auto) PT INR APTT Sodium 132 Potassium 4.6 Chloride 97 L Carbon Dioxide 25 Anion Gap 15 BUN 56 H Creatinine 1.9 H Est GFR ( Amer) 41 Est GFR (Non-Af Amer) 34 Random Glucose 101 Calcium 8.6 Magnesium 1.8 Total Bilirubin 0.5 AST 22 ALT 11 Alkaline Phosphatase 68 Lactate Dehydrogenase 369 Total Creatine Kinase 47 Troponin I < 0.01 Total Protein 6.8 Albumin 3.7 Globulin 3.1 Albumin/Globulin Ratio 1.2 Lipase 86 Urine Color Urine Appearance Urine pH Ur Specific [place] Urine Protein Urine Glucose (UA) Urine Ketones Urine Blood Urine Nitrate Urine Bilirubin Urine Urobilinogen Ur Leukocyte Esterase Urine RBC Urine WBC Urine Bacteria Assessment & Plan - Assessment and Plan (Free Text) Assessment: 83 yo M with PMH of CAD s/p CABG, HTN, HLD, BPH, and CHFpEF presents to [facility] for hematuria/dysuria. Patient to be treated for UTI and evaluated by urology for c ollecting system dilation and hematuria. Plan: 1. Hematuria - Possibly multifactorial: UTI vs stone vs malignancy - CT showed mildly dilated collecting system without evidence of stone. Heterogenous opacity in bladder. - Bladder US ordered - Hold DAPT - Insert schwartz catheter, monitor output and - H/H and vitals stable, cont to monitor - Urology consulted 2. UTI - UA positive, f/u culture - Ceftriaxone 3. CHARLES - BUN/Cr consistent with prerenal azotemia - Urine studies, f/u FeUrea - NS at 50 cc/hr - Monitor clinical status due to h/o CHF 4. CAD - Hold DAPT - Cardiology consulted 5. CHFpEF - Echo (04/16/18) LVEF 74.3%, moderate , dilated LA - Hold Lasix due to CHARLES 6. BPH - Cont Finasteride - Hold Doxazosin due to CHARLES - Insert schwartz due to retention 7. HTN - Cont Metoprolol - Hold Irbesartan due to CHARLES 8. HLD - Cont Ezetimibe and Lipitor GI/DVT PPX - SCDs - GI PPx not indicated at this time Patient discussed in detail with Dr. Irby. Toño Ramos, DO PGY2 <Giacomo Irby - Last Filed: 06/27/18 16:44> Results - Vital Signs Recent Vital Signs: Last Vital Signs Temp 98.3 F 06/27/18 14:00 Pulse 56 L 06/27/18 14:00 Resp 18 06/27/18 14:00 BP 122/56 L 06/27/18 14:00 Pulse Ox 96 06/27/18 14:00 - Labs Result Diagrams: 06/27/18 08:00 06/27/18 08:00 Labs: Laboratory Results - last 24 hr 06/27/18 06/27/18 06/27/18 07:46 08:00 08:00 WBC 4.9 D RBC 3.77 Hgb 10.6 L Hct 31.7 L MCV 84.1 MCH 28.1 MCHC 33.4 RDW 15.1 H Plt Count 118 L MPV 11.5 H Neut % (Auto) 60.5 Lymph % (Auto) 22.9 [place] % (Auto) 14.6 H Eos % (Auto) 1.6 Baso % (Auto) 0.4 Lymph # (Auto) 1.1 L [place] # (Auto) 0.7 H Eos # (Auto) 0.1 Baso # (Auto) 0.02 Absolute Neuts (auto) 2.98 PT 12.1 INR 1.07 APTT 33.2 Sodium Potassium Chloride Carbon Dioxide Anion Gap BUN Creatinine Est GFR ( Amer) Est GFR (Non-Af Amer) Random Glucose Calcium Magnesium Total Bilirubin AST ALT Alkaline Phosphatase Lactate Dehydrogenase Total Creatine Kinase Troponin I Total Protein Albumin Globulin Albumin/Globulin Ratio Lipase Urine Color Dark red Urine Appearance Bloody Urine pH 7.0 Ur Specific [place] 1.025 Urine Protein >=300 H Urine Glucose (UA) 250 H Urine Ketones 15 H Urine Blood Large H Urine Nitrate Positive H Urine Bilirubin Large H Urine Urobilinogen 1.0 H Ur Leukocyte Esterase Small H Urine RBC Tntc H Urine WBC Tntc H Urine Bacteria Large 06/27/18 08:00 WBC RBC Hgb Hct MCV MCH MCHC RDW Plt Count MPV Neut % (Auto) Lymph % (Auto) [place] % (Auto) Eos % (Auto) Baso % (Auto) Lymph # (Auto) [place] # (Auto) Eos # (Auto) Baso # (Auto) Absolute Neuts (auto) PT INR APTT Sodium 132 Potassium 4.6 Chloride 97 L Carbon Dioxide 25 Anion Gap 15 BUN 56 H Creatinine 1.9 H Est GFR ( Amer) 41 Est GFR (Non-Af Amer) 34 Random Glucose 101 Calcium 8.6 Magnesium 1.8 Total Bilirubin 0.5 AST 22 ALT 11 Alkaline Phosphatase 68 Lactate Dehydrogenase 369 Total Creatine Kinase 47 Troponin I < 0.01 Total Protein 6.8 Albumin 3.7 Globulin 3.1 Albumin/Globulin Ratio 1.2 Lipase 86 Urine Color Urine Appearance Urine pH Ur Specific [place] Urine Protein Urine Glucose (UA) Urine Ketones Urine Blood Urine Nitrate Urine Bilirubin Urine Urobilinogen Ur Leukocyte Esterase Urine RBC Urine WBC Urine Bacteria Attending/Attestation - Attestation I have personally seen and examined this patient.: Yes I have fully participated in the care of the patient.: Yes I have reviewed all pertinent clinical information: Yes Notes (Text): 06/27/18 16:38 83 year old male with past medical history of CAD s/p CABG, ?BPH, hypertension and dyslipidemia who presents with complaint of gross hematuria. Also states he was recently prescribed on po antibiotics for UTI by PMD. CT abd/pelvis showed mildly dilated collecting system without evidence of stone; heterogenous opacity in bladder; and enlarged prostate. UA shows large blood, positive nitrates, small LE, TNTC WBC. UCx is pending. Labs significant for CHARLES with BUN/Cr of 56/1.9. Will admit and start on iv fluids and iv antibiotics. Urology evaluation is requested (notified from ER). Will hold aspirin and brilinta for now. Follow up with cardiology recommendations. Lasix and ARB are on hold for now. Monitor creatinine closely. Schwartz insertion and monitor. Follow up with urology recommendations. Family is at bedside and questions were answered. Giacomo Irby MD Hospitalist.
[2018-06-27] MEDS: Cholecalciferol 1,000 INTLU TAB PO SCH (14:47)
[2018-06-27] MEDS ORDERED: Pneumococcal 23-Valent Vaccine IM ONE (16:57)
--- NOTE | 2018-06-27 19:16 | CARD ---
APPROVED REPORT Date of service: 06/27/2018 PROCEDURE The above named patient recieved 20.0 millicuries of Tc99m tagged red blood cells intravenously. After achieving equilibrium, gated imaging of 16/frame/cycle was performed utillizing Gamma camera interfaced with a digital computer and gated device. Gated imaging was then performed in the left anterior oblique, anterior, and the left lateral projections. Findings Calculated LV Ejection Fraction is 60%. Impressions Calculated Ejection Fraction is 60 %.
[2018-06-27] MEDS ORDERED: Latanoprost 2.5 ml Opht Soln OU SCH (22:00)
--- NOTE | 2018-06-27 22:27 | CON ---
DATE: 06/27/2018 CONSULT SERVICE: Cardiology. REASON FOR CONSULTATION: Preop evaluation, risk stratification for possible cystoscopy, recently history of cardiac catheterization and history of gross hematuria on Brilinta and aspirin. BRIEF CLINICAL HISTORY: This is 83-year-old male with past medical history significant for coronary artery disease, status post coronary artery bypass surgery, CABG in 2002, recently cardiac catheterization a week ago at [facility], medical treatment was recommended, history of CVA on Brilinta after the CVA 15 years ago who was started developing hematuria, two big pieces of blood clot that came during micturition two days ago, but since then last night he was having mariola hematuria. The patient is admitted here, possibly may need a cystoscopy. Cardiology consult is called for preop evaluation risk stratification. PAST MEDICAL HISTORY: Significant for coronary artery disease, CABG in 2002, history of stroke in 2002, hypertension, hyperlipidemia, benign prostatic hypertrophy and ischemic cardiomyopathy. RECENT CARDIAC WORKUP: As follows; the patient had a cardiac catheterization dated 06/20/2017, at [facility] patent graft. Medical treatment recommended. Decreased LV function. Before that and prior to that, the patient had an echo dated 04/26/2013, that shows ejection fraction 65% to 70%, [id number] aortic stenosis, trace aortic regurgitation, [id number]-[id number] mitral regurgitation, purrn-in-qvkf tricuspid regurgitation, RV systolic pressure 25%, done in Dr. Arora's office. The patient has also bilateral carotid duplex scan done dated 05/10/2018, that shows right internal carotid artery 40% to 59% stenosis, left carotid artery 20% to 39% stenosis. The patient had a stress test dated 05/16/2018, that shows ejection fraction 45%. A stress test dated 05/16/2018, that is abnormal myocardial perfusion study, fixed apical defect suggestive of myocardial injury/infarction, partially reversible inferior defect suggestive of ischemia, mild LV dysfunction, diffuse hypokinesis, ejection fraction 40% to 45%. When comparison made for the last study dated 11/25/2016, previously noted partially reversible apical defect appears fixed and the inferior defect appears partially reversible in the current study dated 05/16/2018. Echo as mentioned dated 04/16/2018, ejection fraction 65% to 70%. SOCIAL HISTORY: Denies any smoking, quit smoking 15 years ago. No history of alcohol abuse. PAST SURGICAL HISTORY: Significant for coronary artery bypass surgery in 2002, history of TARP. CURRENT MEDICATIONS: The patient is taking at home; potassium chloride, metoprolol tartrate 25 mg p.o. b.i.d., Xalatan ophthalmic eye drop, irbesartan 300 mg daily, Lasix 40 mg daily, finasteride 5 mg daily, Vytorin 10/20 mg one tablet daily, Cardura 2 mg p.o. at bedtime, vitamin D3 1 tablet daily, baby aspirin 81 mg daily, allopurinol 100 mg daily, Brilinta 90 mg twice and Vantin 100 mg p.o. b.i.d. ALLERGIES: NO KNOWN DRUG ALLERGY. REVIEW OF SYSTEMS: As per HPI. PHYSICAL EXAMINATION: GENERAL: Height of the patient 5 feet 7 inches. Weight of the patient 178 pounds. Body mass index 30 kg/m2. VITAL SIGNS: Temperature afebrile. Heart rate 96 and blood pressure 145/94. HEENT: PERRLA. Extraocular muscles intact. NECK: Supple. No carotid bruits or thyromegaly. CHEST: Clear to auscultation. HEART: S1 and S2, regular. ABDOMEN: Soft. EXTREMITIES: Clubbing and cyanosis negative. LABORATORY DATA: EKG shows normal sinus with a PVC right bundle branch block and left anterior hemiblock. Blood workup; WBC 4.9, hemoglobin 10.6, hematocrit 31.7 and platelet count 118. Chemistry shows sodium 132, potassium 4.6, chloride 97, carbon dioxide 25, anion gap of 15, BUN 76 and creatinine 1.9. IMPRESSION: An 83-year-old male with past medical history significant coronary artery disease, status post coronary artery bypass grafting in 2002, history of recent cardiac catheterization, only cardiac catheterization with no intervention was done, last Wednesday dated 06/20/2018, patent graft, mildly decreased left ventricular function, ejection 45%, by stress echo ejection fraction 45%, by echo the patient's ejection fraction reported 55%, trace mitral regurgitation, trace tricuspid regurgitation, tlqg-wq-tcedpife aortic stenosis, mild aortic regurgitation, admitted with gross hematuria, history of cerebrovascular accident on Brilinta secondary to congestive heart failure. The patient had a prior cardiac catheterization a year ago and also it was a cardiac catheterization with no intervention that was done. RECOMMENDATION: In view of the above, we can hold the Brilinta since no recent coronary intervention done and if gross hematuria continues will hold the baby aspirin as well. The patient will be cleared to go for a cystoscopy if needed. We will follow with you. Resume previous medication. As above, the patient is cleared to go for a cystoscopy. We will hold Brilinta. We will review the detailed catheterization report from [facility], which was done last Wednesday, but preliminary report shows patent graft, medical treatment, no coronary intervention performed on this admission. The patient's echo dated 04/26/2013, shows moderate aortic stenosis, peak gradient across the aortic valve 41 mmHg, valve area 1.3 cm2 to 1.6 cm2, consistent with [id number] aortic stenosis. We will follow with you. Thank you Dr. Irby, for providing us the opportunity in taking care of the patient, Alexandre Bernard. Juno Davis MD
[2018-06-27 23:21] VITALS: RESP 20; O2SAT 95
[2018-06-28 06:59] LABS: HEMOGLOBIN 9.8 g/dL (14.0-18.0); MEAN CELL VOLUME 83.6 fl (80.0-105.0); MEAN CORPUSCULAR HEMOGLOBIN 27.3 pg (25.0-35.0); MEAN CORPUSCULAR HGB CONC 32.7 g/dl (31.0-37.0); MEAN PLATELET VOLUME 12.3 fl (7.0-11.0); RBC 3.59 10^6/uL (3.5-6.1); RED CELL DISTRIBUTION WIDTH 15.1 % (11.5-14.5); WHITE BLOOD COUNT 4.8 10^3/uL (4.5-11.0)
[2018-06-28 07:56] LABS: BLOOD UREA NITROGEN 42 mg/dL (7-21); CALCIUM 8.4 mg/dL (8.4-10.5); GFR NON-AFRICAN AMERICAN > 60; HDL CHOLESTEROL 33 mg/dL (29-60)
[2018-06-28 08:00] LABS: LDL CHOLESTEROL 45 mg/dL (0-129)
[2018-06-28 08:02] VITALS: TEMP 97.9
[2018-06-28] MEDS ORDERED: cefTRIAXone 1 gm 1 GM/100 ML BAG IVPB SCH (10:00)
[2018-06-28] MEDS: Cholecalciferol 1,000 INTLU TAB PO SCH (10:42)
[2018-06-28 10:47] VITALS: BP 112/50; PULSE 58
--- NOTE | 2018-06-28 13:33 | CP.PCM.DIS ---
<Maikol Ramos - Last Filed: 06/28/18 13:33> Provider - Provider Date of Admission: 06/27/18 11:30 Attending physician: Giacomo Irby MD Primary care physician: Wilmer Victor MD Consults: 06/27/18 12:23 Consult [Physician Consult] Routine Comment: Consulting Provider: Aravind Malave Consulting Physician: Aravind Malave Reason for Consult: gross hematuria Consult [Physician Consult] Routine Comment: Consulting Provider: Juno Arora Consulting Physician: Juno Arora Reason for Consult: hematuria; history of CAD on asa/brilinta 06/27/18 16:18 Social Work Referral Routine Comment: d/c plan Physician Instructions: Reason For Exam: assess Time Spent in preparation of Discharge (in minutes): 40 Diagnosis - Discharge Diagnosis (1) Hematuria Status: Resolved Priority: High (2) CAD (coronary artery disease) Status: Chronic Hospital Course - Lab Results Lab Results: Most Recent Lab Values WBC 4.8 10^3/uL (4.5-11.0) 06/28/18 06:30 RBC 3.59 10^6/uL (3.5-6.1) 06/28/18 06:30 Hgb 9.8 g/dL (14.0-18.0) L 06/28/18 06:30 Hct 30.0 % (42.0-52.0) L 06/28/18 06:30 MCV 83.6 fl (80.0-105.0) 06/28/18 06:30 MCH 27.3 pg (25.0-35.0) 06/28/18 06:30 MCHC 32.7 g/dl (31.0-37.0) 06/28/18 06:30 RDW 15.1 % (11.5-14.5) H 06/28/18 06:30 Plt Count 134 10^3/uL (120.0-450.0) 06/28/18 06:30 MPV 12.3 fl (7.0-11.0) H 06/28/18 06:30 Neut % (Auto) 60.5 % (50.0-68.0) 06/27/18 08:00 Lymph % (Auto) 22.9 % (22.0-35.0) 06/27/18 08:00 [place] % (Auto) 14.6 % (1.0-6.0) H 06/27/18 08:00 Eos % (Auto) 1.6 % (1.5-5.0) 06/27/18 08:00 Baso % (Auto) 0.4 % (0.0-3.0) 06/27/18 08:00 Lymph # (Auto) 1.1 (1.2-3.4) L 06/27/18 08:00 [place] # (Auto) 0.7 (0.1-0.6) H 06/27/18 08:00 Eos # (Auto) 0.1 (0.0-0.7) 06/27/18 08:00 Baso # (Auto) 0.02 K/mm3 (0.0-2.0) 06/27/18 08:00 Absolute Neuts (auto) 2.98 (1.4-6.5) 06/27/18 08:00 PT 12.1 SECONDS (9.4-12.5) 06/27/18 08:00 INR 1.07 06/27/18 08:00 APTT 33.2 Seconds (26.9-38.3) 06/27/18 08:00 Sodium 135 mmol/L (132-148) 06/28/18 06:30 Potassium 4.1 mmol/L (3.6-5.0) 06/28/18 06:30 Chloride 103 mmol/L (98-107) 06/28/18 06:30 Carbon Dioxide 24 mmol/L (21-33) 06/28/18 06:30 Anion Gap 12 (10-20) 06/28/18 06:30 BUN 42 mg/dL (7-21) H 06/28/18 06:30 Creatinine 1.1 mg/dl (0.8-1.5) 06/28/18 06:30 Est GFR ( Amer) > 60 06/28/18 06:30 Est GFR (Non-Af Amer) > 60 06/28/18 06:30 Random Glucose 93 mg/dL (70-110) 06/28/18 06:30 Hemoglobin A1c 6.4 % (4.2-6.5) 06/28/18 06:30 Calcium 8.4 mg/dL (8.4-10.5) 06/28/18 06:30 Phosphorus 3.4 mg/dL (2.5-4.5) 06/28/18 06:30 Magnesium 2.1 mg/dL (1.7-2.2) 06/28/18 06:30 Total Bilirubin 0.5 mg/dL (0.2-1.3) 06/27/18 08:00 AST 22 U/L (17-59) 06/27/18 08:00 ALT 11 U/L (7-56) 06/27/18 08:00 Alkaline Phosphatase 68 U/L (38-126) 06/27/18 08:00 Lactate Dehydrogenase 369 U/L (333-699) 06/27/18 08:00 Total Creatine Kinase 47 U/L (35-230) 06/27/18 08:00 Troponin I < 0.01 ng/mL 06/27/18 08:00 Total Protein 6.8 g/dL (5.8-8.3) 06/27/18 08:00 Albumin 3.7 g/dL (3.0-4.8) 06/27/18 08:00 Globulin 3.1 gm/dL 06/27/18 08:00 Albumin/Globulin Ratio 1.2 (1.1-1.8) 06/27/18 08:00 Triglycerides 106 mg/dL (35-160) 06/28/18 06:30 Cholesterol 96 mg/dL (130-200) L 06/28/18 06:30 LDL Cholesterol Direct 45 mg/dL (0-129) 06/28/18 06:30 HDL Cholesterol 33 mg/dL (29-60) 06/28/18 06:30 Lipase 86 U/L (23-300) 06/27/18 08:00 Free T4 1.07 ng/dL (0.78-2.19) 06/28/18 08:25 TSH 3rd Generation 7.71 mIU/mL (0.46-4.68) H 06/28/18 06:30 Urine Color Dark red (YELLOW) 06/27/18 07:46 Urine Appearance Bloody (CLEAR) 06/27/18 07:46 Urine pH 7.0 (4.7-8.0) 06/27/18 07:46 Ur Specific [place] 1.025 (1.005-1.035) 06/27/18 07:46 Urine Protein >=300 mg/dL (<30 mg/dL) H 06/27/18 07:46 Urine Glucose (UA) 250 mg/dL (NEGATIVE) H 06/27/18 07:46 Urine Ketones 15 mg/dL (NEGATIVE) H 06/27/18 07:46 Urine Blood Large (NEGATIVE) H 06/27/18 07:46 Urine Nitrate Positive (NEGATIVE) H 06/27/18 07:46 Urine Bilirubin Large (NEGATIVE) H 06/27/18 07:46 Urine Urobilinogen 1.0 E.U./dL (<1 E.U./dL) H 06/27/18 07:46 Ur Leukocyte Esterase Small Indra/uL (NEGATIVE) H 06/27/18 07:46 Urine RBC Tntc /hpf (0-2) H 06/27/18 07:46 Urine WBC Tntc /hpf (0-6) H 06/27/18 07:46 Urine Bacteria Large /hpf (NONE) 06/27/18 07:46 - Hospital Course Hospital Course: Patient is an 83 yo M with PMH of CAD s/p CABG, HTN, HLD, BPH, and CHFrEF presented to [facility] for 4 day history of hematuria. Patient was treated with PO abx for UTI by his PMD a few days prior to arrival. However, patient states that his symptoms did not resolve and hematuria worsened. Of note, patient had cardiac catherization about 1-2 weeks ago due to abnormal stress test. Cardiac catherization was unremarkable. Patient was continued on Brillinta, which he has been on for ~1 year, and ASA. CT of the abdomen/pelvis showed dilated collecting system and heterogenous bladder likely 2/2 clots. Vitals and hemoglobin were stable in the ED. Patient was admitted for evaluation for hematuria. Patient was evaluated by cardiology who stated that his DAPT could be held and cleared him for cystoscopy. Hematuria resolved overnight and patient was able to make adequate urine overnight without schwartz catheter insertion. Patient was evaluated by urology, who stated that patient may be discharged and follow up outpatient for cystoscopy on 06/30/18. Renal function returned to baseline after IVF hydration. As patient was hemodynamically stable and hemoglobin remained stable, he was discharged. Patient was instructed to follow up with urology and his PMD outpatient. Patient was also instructed to hold his DAPT until instructed otherwise by urology, PMD, and cardiology. Patient will be continued on all of his home medications except for ASA and Brillinta. Discharge Exam - Head Exam Head Exam: NORMAL INSPECTION - Eye Exam Eye Exam: Normal appearance Pupil Exam: NORMAL ACCOMODATION - ENT Exam ENT Exam: Mucous Membranes Moist - Respiratory Exam Respiratory Exam: Clear to PA & Lateral. absent: Rales, Rhonchi, Wheezes - Cardiovascular Exam Cardiovascular Exam: RRR, Systolic Murmur. absent: Diastolic murmur, Gallop, Rubs - GI/Abdominal Exam GI & Abdominal Exam: Soft. absent: Distended, Guarding, Rebound, Tenderness - Extremities Exam Extremities exam: normal inspection - Back Exam Back exam: NORMAL INSPECTION - Neurological Exam Neurological exam: Alert, Oriented x3 - Psychiatric Exam Psychiatric exam: Normal Affect - Skin Skin Exam: Normal Color, Warm Discharge Plan - Follow Up Plan Condition: STABLE Disposition: HOME/ ROUTINE Instructions: Blood in the Urine (Hematuria) in Adults, Heart Healthy Diet, Urinary Tract Infection, Adult (DC) Additional Instructions: - Follow up with Dr. Malave on for outpatient procedure - Follow up with Dr. Victor in 3-5 days - Hold Aspirin and Brillinta until instructed - Complete antibiotics given by Dr. Victor - Recommend recheck thyroid function in 6-8 weeks - Resume all other medications as prescribed - Return to ED if symptoms worsen Referrals: Wilmer Victor MD [Primary Care Provider] - Aravind Malave MD [Staff Provider] - <Giacomo Irby - Last Filed: 06/28/18 17:28> Provider - Provider Date of Admission: 06/27/18 11:30 Attending physician: Giacomo Irby MD Primary care physician: Wilmer Victor MD Consults: 06/27/18 12:23 Consult [Physician Consult] Routine Comment: Consulting Provider: Aravind Malave Consulting Physician: Aravind Malave Reason for Consult: gross hematuria Consult [Physician Consult] Routine Comment: Consulting Provider: Juno Arora Consulting Physician: Juno Arora Reason for Consult: hematuria; history of CAD on asa/brilinta 06/27/18 16:18 Social Work Referral Routine Comment: d/c plan Physician Instructions: Reason For Exam: assess Hospital Course - Lab Results Lab Results: Most Recent Lab Values WBC 4.8 10^3/uL (4.5-11.0) 06/28/18 06:30 RBC 3.59 10^6/uL (3.5-6.1) 06/28/18 06:30 Hgb 9.8 g/dL (14.0-18.0) L 06/28/18 06:30 Hct 30.0 % (42.0-52.0) L 06/28/18 06:30 MCV 83.6 fl (80.0-105.0) 06/28/18 06:30 MCH 27.3 pg (25.0-35.0) 06/28/18 06:30 MCHC 32.7 g/dl (31.0-37.0) 06/28/18 06:30 RDW 15.1 % (11.5-14.5) H 06/28/18 06:30 Plt Count 134 10^3/uL (120.0-450.0) 06/28/18 06:30 MPV 12.3 fl (7.0-11.0) H 06/28/18 06:30 Neut % (Auto) 60.5 % (50.0-68.0) 06/27/18 08:00 Lymph % (Auto) 22.9 % (22.0-35.0) 06/27/18 08:00 [place] % (Auto) 14.6 % (1.0-6.0) H 06/27/18 08:00 Eos % (Auto) 1.6 % (1.5-5.0) 06/27/18 08:00 Baso % (Auto) 0.4 % (0.0-3.0) 06/27/18 08:00 Lymph # (Auto) 1.1 (1.2-3.4) L 06/27/18 08:00 [place] # (Auto) 0.7 (0.1-0.6) H 06/27/18 08:00 Eos # (Auto) 0.1 (0.0-0.7) 06/27/18 08:00 Baso # (Auto) 0.02 K/mm3 (0.0-2.0) 06/27/18 08:00 Absolute Neuts (auto) 2.98 (1.4-6.5) 06/27/18 08:00 PT 12.1 SECONDS (9.4-12.5) 06/27/18 08:00 INR 1.07 06/27/18 08:00 APTT 33.2 Seconds (26.9-38.3) 06/27/18 08:00 Sodium 135 mmol/L (132-148) 06/28/18 06:30 Potassium 4.1 mmol/L (3.6-5.0) 06/28/18 06:30 Chloride 103 mmol/L (98-107) 06/28/18 06:30 Carbon Dioxide 24 mmol/L (21-33) 06/28/18 06:30 Anion Gap 12 (10-20) 06/28/18 06:30 BUN 42 mg/dL (7-21) H 06/28/18 06:30 Creatinine 1.1 mg/dl (0.8-1.5) 06/28/18 06:30 Est GFR ( Amer) > 60 06/28/18 06:30 Est GFR (Non-Af Amer) > 60 06/28/18 06:30 Random Glucose 93 mg/dL (70-110) 06/28/18 06:30 Hemoglobin A1c 6.4 % (4.2-6.5) 06/28/18 06:30 Calcium 8.4 mg/dL (8.4-10.5) 06/28/18 06:30 Phosphorus 3.4 mg/dL (2.5-4.5) 06/28/18 06:30 Magnesium 2.1 mg/dL (1.7-2.2) 06/28/18 06:30 Total Bilirubin 0.5 mg/dL (0.2-1.3) 06/27/18 08:00 AST 22 U/L (17-59) 06/27/18 08:00 ALT 11 U/L (7-56) 06/27/18 08:00 Alkaline Phosphatase 68 U/L (38-126) 06/27/18 08:00 Lactate Dehydrogenase 369 U/L (333-699) 06/27/18 08:00 Total Creatine Kinase 47 U/L (35-230) 06/27/18 08:00 Troponin I < 0.01 ng/mL 06/27/18 08:00 Total Protein 6.8 g/dL (5.8-8.3) 06/27/18 08:00 Albumin 3.7 g/dL (3.0-4.8) 06/27/18 08:00 Globulin 3.1 gm/dL 06/27/18 08:00 Albumin/Globulin Ratio 1.2 (1.1-1.8) 06/27/18 08:00 Triglycerides 106 mg/dL (35-160) 06/28/18 06:30 Cholesterol 96 mg/dL (130-200) L 06/28/18 06:30 LDL Cholesterol Direct 45 mg/dL (0-129) 06/28/18 06:30 HDL Cholesterol 33 mg/dL (29-60) 06/28/18 06:30 Lipase 86 U/L (23-300) 06/27/18 08:00 Free T4 1.07 ng/dL (0.78-2.19) 06/28/18 08:25 TSH 3rd Generation 7.71 mIU/mL (0.46-4.68) H 06/28/18 06:30 Urine Color Dark red (YELLOW) 06/27/18 07:46 Urine Appearance Bloody (CLEAR) 06/27/18 07:46 Urine pH 7.0 (4.7-8.0) 06/27/18 07:46 Ur Specific [place] 1.025 (1.005-1.035) 06/27/18 07:46 Urine Protein >=300 mg/dL (<30 mg/dL) H 06/27/18 07:46 Urine Glucose (UA) 250 mg/dL (NEGATIVE) H 06/27/18 07:46 Urine Ketones 15 mg/dL (NEGATIVE) H 06/27/18 07:46 Urine Blood Large (NEGATIVE) H 06/27/18 07:46 Urine Nitrate Positive (NEGATIVE) H 06/27/18 07:46 Urine Bilirubin Large (NEGATIVE) H 06/27/18 07:46 Urine Urobilinogen 1.0 E.U./dL (<1 E.U./dL) H 06/27/18 07:46 Ur Leukocyte Esterase Small Indra/uL (NEGATIVE) H 06/27/18 07:46 Urine RBC Tntc /hpf (0-2) H 06/27/18 07:46 Urine WBC Tntc /hpf (0-6) H 06/27/18 07:46 Urine Bacteria Large /hpf (NONE) 06/27/18 07:46 Attending/Attestation - Attestation I have personally seen and examined this patient.: Yes I have fully participated in the care of the patient.: Yes I have reviewed all pertinent clinical information, including history, physical exam and plan: Yes Notes (Text): 06/28/18 17:24 83 year old male with past medical history of CAD s/p CABG, ?BPH, hypertension and dyslipidemia, recent prescribed antibiotics for UTI, who presented with hematuria. CT abd/pelvis showed mildly dilated collecting system without evidence of stone; heterogenous opacity in bladder; and enlarged prostate. UA showed large blood, positive nitrates, small LE, TNTC WBC. UCx was pending. Labs on admission were significant for CHARLES with BUN/Cr of 56/1.9. He was started on iv antibiotics and iv fluids. He was seen by cardiology who agreed to hold aspirin and brilinta for now. Following day his CHARLES resolved. Hematuria cleared. He was seen by urology who recommended outpatient cystoscopy on . Patient is discharged home to follow up with pmd. Follow up with Dr. Malave this for cystoscopy. Hold aspirin and brilinta for now until cystoscopy. Discuss with urology/cardiology prior to resuming. Repeat TFTs in 4-6 weeks. Giacomo Irby MD Hospitalist.
--- NOTE | 2018-06-28 14:44 | RAD ---
Date of service: 06/28/2018 HISTORY: preop COMPARISON: 04/17/2018 TECHNIQUE: 1 view obtained. FINDINGS: LUNGS: No active pulmonary disease. PLEURA: No significant pleural effusion identified, no pneumothorax apparent. CARDIOVASCULAR: Aortic calcification Moderate cardiomegaly no pulmonary vascular congestion. OSSEOUS STRUCTURES: Sternal wires VISUALIZED UPPER ABDOMEN: Normal. OTHER FINDINGS: None. IMPRESSION: No active disease.
--- NOTE | 2018-06-28 19:56 | PN ---
DATE: 06/28/2018 REASON FOR CONSULTATION: Preoperative evaluation and risk status stratification for possible cystoscopy, recently cardiac catheterization, history of gross hematuria, on Brilinta and aspirin. SUBJECTIVE: The patient denies any further episodes of hematuria; off aspirin and Brilinta. PHYSICAL EXAMINATION: GENERAL: Not in apparent distress. VITAL SIGNS: Temperature afebrile, heart rate 50, blood pressure 102/50. HEENT: PERRLA. Extraocular muscles intact. NECK: Supple. No carotid bruits. No thyromegaly. CHEST: Clear to auscultation. HEART: S1 and S2 regular. ABDOMEN: Soft. EXTREMITIES: Clubbing, cyanosis negative. LABORATORY DATA: Blood workup as follows. WBC 4.8, hemoglobin 9.8, hematocrit 30, and platelet count 134. Chemistries show sodium 135, potassium 4.1, chloride 103, carbon dioxide 24, anion gap of 12, BUN 42 and creatinine 1,1. TSH 7.71. The patient had a MUGA scan done yesterday that showed 60%. IMPRESSION: An 83-year-old male. Recently had a cardiac catheterization on 06/20/2018 at [facility]. Medical treatment recommended, patent graft. Echo done on 04/26/2013 showed 60% ejection fraction. Bilateral carotid Duplex on 05/10/2018 showed 40 to 59% stenosis on the right and 20 to 29% stenosis on the right side. Admitted yesterday with gross hematuria, was on aspirin and Brilinta, which were held, hematuria has cleared. Yesterday, MUGA scan repeated, preserved left ventricular function. RECOMMENDATION: Continue to hold aspirin and Brilinta. Continue atorvastatin. Continue metoprolol. Continue gentle hydration. Continue allopurinol. The patient is cleared from Cardiology point of view to go for cystoscopy if needed. No contraindication. As mentioned, recent cardiac catheterization revealed preserved LV function, patent graft. Recent MUGA scan showed ejection fraction of 65%. History of CVA, on Brilinta with CVA, so we will discontinue Brilinta for good and continue baby aspirin but the hematuria improved. The patient is cleared for cystoscopy if needed. Once cystoscopy is done and completely the patient is free from hematuria, we will restart baby aspirin 81 mg. Thank you for providing us the opportunity in taking care of the patient, Alexandreariela Bernard. Juno Davis MD (Delete this signature block when dictator is a preceptor.) cc: MD Dru (Delete if not dictated.)
== END 2018-06-28 14:41 | disposition home or self-care (01) | DRG 690 ==
LOC: ED 07:11 → ERH 11:30 → 5RNO 13:11
PROVIDERS: ADMIT Internal Medicine; ATTEND Internal Medicine
DX: N39.0 Urinary tract infection, site not specified (principal); N17.9 Acute kidney failure, unspecified; I50.42 Chronic combined systolic (congestive) and diastolic (congestive) heart failure; I11.0 Hypertensive heart disease with heart failure; I25.5 Ischemic cardiomyopathy; R31.0 Gross hematuria; N40.0 Benign prostatic hyperplasia without lower urinary tract symptoms; I25.10 Atherosclerotic heart disease of native coronary artery without angina pectoris; I08.3 Combined rheumatic disorders of mitral, aortic and tricuspid valves; E78.5 Hyperlipidemia, unspecified; Z87.891 Personal history of nicotine dependence; Z86.73 Personal history of transient ischemic attack (TIA), and cerebral infarction without residual deficits; Z79.82 Long term (current) use of aspirin; Z79.02 Long term (current) use of antithrombotics/antiplatelets; Z95.1 Presence of aortocoronary bypass graft

== ENCOUNTER 2018-06-30 07:56 | Day surgery (SDC) | payer MEDICARE, BC ==
[2018-06-30] MEDS ORDERED: cefTRIAXone (Rocephin) 1 gm Inj ONE (10:23)
[2018-06-30] MEDS ORDERED: Iohexol 240 (50 ml) ONE (10:23)
[2018-06-30] MEDS ORDERED: Etomidate 20 mg/10ml Inj IV ONE (10:24)
[2018-06-30] MEDS ORDERED: Lactated Ringer's 1,000 ML IV SCH (11:15)
[2018-06-30 12:19] VITALS: BP 134/66; PULSE 55; RESP 18; TEMP 98; O2SAT 95
--- NOTE | 2018-06-30 13:35 | RAD ---
Date of service: 06/30/2018 PROCEDURE: Retrograde pyelogram HISTORY: Hematuria COMPARISON: TECHNIQUE: 38.0 sec of fluoro time. Cumulative dose 11.67 mGy. Ten images were submitted FINDINGS: Both ureters and renal collecting systems were opacified. There are no filling defects seen. No evidence of obstruction. IMPRESSION: As above
--- NOTE | 2018-06-30 21:26 | OP ---
PROCEDURE DATE: 06/30/2018 PREOPERATIVE DIAGNOSIS: Gross hematuria and bladder mass. POSTOPERATIVE DIAGNOSIS: Gross hematuria and bladder mass. PROCEDURES: Cystoscopy, evacuation of clot, bladder biopsy and fulguration, fulguration of prostatic bleeding, bilateral retrograde pyelogram. ATTENDING SURGEON: Aravind Malave MD ANESTHESIA: General. SPECIMENS: Bladder biopsy was sent to pathology. DRAINS: None. COMPLICATIONS: None. OPERATIVE FINDINGS: After informed consent was obtained, the patient was taken to the operating room, placed on operating table. Anesthesia was administered. The patient was placed in dorsal lithotomy position, prepped and draped in usual sterile fashion. The patient received IV antibiotics prior to start of the procedure. A 22-[place] cystoscope was placed in the patient's urethra and advanced proximally under direct vision until the bladder was entered. A full survey inspection of bladder was then performed which revealed no large clot in the bladder. There was no obvious bladder mass. There were multiple raised patches of erythema consistent with either resolving cystitis or possible carcinoma in situ noted throughout the bladder. Bladder had grade 2 trabeculation. Both ureteral orifices were visualized and appeared within normal limits. Exam of the urethra was within normal limits. The prostate was enlarged and hypervascular. There was some median lobe nodular growth into the bladder covering part of the trigone. There appeared to be some active bleeding in the prostate and prostatic urethra. Inspection was made with a 30 and 70-degree lenses. At this point, a cold cup biopsy forceps was passed. A biopsy of one of the erythematous patches was then taken and sent to pathology as specimen. A Bugbee electrode was then passed and the biopsy site was then cauterized along with the area of surrounding erythema. Any of the patches of erythema which appeared to have a small amount of oozing were also cauterized. Bleeding points in the prostatic urethra were also cauterized using the Bugbee electrode. At this point, retrograde pyelograms were performed. A 5-[place] Aurora catheter was introduced through the cystoscope into the bladder and guided first into the right ureteral orifice. When inside the orifice, contrast was then instilled into the system during real-time fluoroscopy. There was some dilatation and tortuosity of the ureter. There was no obvious filling defect noted. There was no hydronephrosis noted and on delayed views, the system was noted to be draining promptly. At this point, the Aurora catheter was guided into the left ureteral orifice and left retrograde pyelogram was also performed. The left retrograde pyelogram also showed some focal dilatation of the ureter. There was some fullness of the renal pelvis; however, the calyces were sharp. There were no obvious filling defects and on delayed views, contrast was noted to be exiting from both kidneys down the ureters and into the bladder without any evidence of obstruction. The films were to be submitted to Radiology for interpretation. At this point, a final inspection was made. There was complete hemostasis from the biopsy sites and there was no active bleeding noted. There was no active prostatic bleeding noted; however, prostate is hypervascular and somewhat ragged in appearance which was likely the source of his gross hematuria along with his anticoagulation. Bladder was drained. The cystoscope was removed. The patient was then returned to the supine position. The patient tolerated the procedure well. He was taken to the recovery room awake in stable condition. Aravind Malave MD
== END 2018-06-30 11:00 | disposition home or self-care (01) ==
LOC: SDS 07:56
PROVIDERS: ATTEND Urology
DX: R31.0 Gross hematuria (principal); N32.9 Bladder disorder, unspecified; I10 Essential (primary) hypertension; I25.10 Atherosclerotic heart disease of native coronary artery without angina pectoris; Z87.891 Personal history of nicotine dependence; Z86.73 Personal history of transient ischemic attack (TIA), and cerebral infarction without residual deficits; Z95.1 Presence of aortocoronary bypass graft
CPT/HCPCS: 52224; 74420; 88305; C1758; J0696; J1885; J2001; J3010; J7120 ×2; Q9966